=== PATIENT | male | born 1935 | race Caucasian/White ===

== ENCOUNTER 2016-11-10 20:39 | Emergency (ER) | payer OTHER ==
[~2016-11-10] VITALS: Ht 152.4 cm; Wt 62.5 kg
[~2016-11-10 20:39] MED LIST: LEVO50TA PO; MECL1TAB40 PO; POTA-327 PO; SIMV20TA2 PO
[2016-11-10 20:42] VITALS: TEMP 36.7; Ht 152.4 cm; Wt 62.5 kg
--- NOTE | 2016-11-10 22:28 | DIAGNOSTIC IMAGING REPORT ---
PA CHEST WITH LEFT-SIDED RIB SERIES CLINICAL HISTORY: Fall with left-sided chest wall pain. FINDINGS: A PA chest radiograph with 4 additional views from a left-sided rib series is compared to study dated 09/19/2014. The heart is mildly enlarged and there is atherosclerotic calcification of the thoracic aorta. The pulmonary vasculature is noncongested. Chronic interstitial thickening is unchanged from previous. The lungs and pleural spaces are clear. No pneumothorax is seen. The skeletal structures are osteopenic. There are nondistracted left anterior eighth and ninth rib fractures. No additional left-sided rib fracture is identified. The remainder the bony thorax is grossly intact. Degenerative change and scoliosis are noted in the thoracolumbar spine. Atherosclerotic calcification is observed in the carotid bulbs. IMPRESSION: 1. Mild cardiac enlargement with no acute cardiopulmonary abnormality. 2. Nondistracted left anterior eighth and ninth rib fractures are noted. Electronically signed by: Antelmo Herron M.D. 11/10/2016 10:26 PM Dictated Date/Time: 11/10/2016 10:24 PM
[2016-11-10 22:49] VITALS: BP 161/77; PULSE 81; O2SAT 96
--- NOTE | 2016-11-10 22:57 | EMERGENCY ROOM VISIT NOTE ---
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 I was involved in the patient's care and did evaluate the patient myself. I was involved in the care throughout the ER stay. The patient fell, he has 2 broken ribs by film. He is not on any anticoagulants, he is not short of breath or hypoxic. He does not appear to have suffered any other injuries. He is safe for discharge home.
--- NOTE | 2016-11-13 17:28 | EMERGENCY ROOM VISIT NOTE ---
ED Visit Note First contact with patient: 21:58 Chief Complaint: Fall. History of Present Illness: Mr. Velez is an 80-year-old white male who ambulates into the ED complaining of left anterior rib pain. Patient reports approximately 4 hours ago he was walking up his porch steps. He reports he lost his footing and fell striking his left side of his chest on a step. He reports since that time she's had pain over the left anterior chest wall. He reports it has waxed and waned in level of intensity. Currently he describes his pain as an achy sensation. He rates his discomfort 5/10. The pain is nonradiating. The pain worsens with palpation and deep inspiration. He does report he took Aleve shortly after the fall which took all of his pain away and then it returned. He denies any associated symptoms including lightheadedness dizziness before the fall, striking his hand at the time of the fall, loss of consciousness at the time of the fall and since the fall he has had no signs of head injury, neck pain, shortness of breath/wheezing, abdominal pain, nausea/vomiting. Review of Systems: As noted above in history of present illness. 8 body systems were reviewed and found to be negative as noted above. Past Medical History: Hypertension, bilateral unspecified knee surgeries. Current Medications: Lisinopril, hydrochlorothiazide, potassium, levothyroxine, simvastatin and Aleve. Allergies to Medications: Patient denies. Social History: Patient is currently retired; he feels safe in his home environment; he denies tobacco and alcohol use. Physical Examination: Vital Signs: Date Time Temp Pulse Resp B/P Pulse Ox O2 Delivery O2 Flow Rate FiO2 11/10/16 22:49 81 18 161/77 96 Room Air 11/10/16 22:20 90 16 158/72 98 Room Air 11/10/16 20:42 36.7 95 20 187/84 98 Room Air GENERAL: 80-year-old male in mild to moderate distress due to pain, nontoxic- appearing, afebrile and hemodynamically stable. NEUROLOGICAL: Awake, alert and oriented to person, place and time. Answering questions appropriately and following commands. Normal gait. Good hand eye coordination. No focal motor sensory deficits. Cranial nerves II through XII grossly intact. Good short-term and long-term recall. SKIN: Warm, dry and pink. No soft tissue trauma noted. HEENT: Atraumatic and normocephalic. Skull: No bony deformities, depressions or tenderness. No raccoon's eyes or gibbs signs. No drainage from ears and air; hemotympanum. Face: No bony deformity, crepitus or ecchymosis. PERRLA. EOMI without nystagmus. No malocclusion. No intraoral trauma. Airway patent. Speech normal. No lymphadenopathy. Trachea midline. No jugular venous distention. BACK: No tenderness over the bony cervical, thoracic and lumbar spine. Full range of motion of the cervical spine. THORAX: Lungs sounds are clear to auscultation and equal bilaterally with symmetrical chest wall. No wheezing, rales or rhonchi. Moderate tenderness over the left anterior chest wall without bony deformity or crepitus. No swelling or ecchymosis. No increased respiratory effort or rate. HEART: Regular rate and rhythm. No gallops, rubs or murmurs are appreciated. ABDOMEN: Flat, soft and nontender. Positive bowel sounds in all quadrants. No guarding, rigidity or organomegaly. EXTREMITIES: Moves all extremities well on command and with purpose. All distal neurovascular statuses are intact and equal bilaterally. ED Course: Patient is assessed as noted above. PA Chest with Left Rib Series: Read by myself and shows a mildly enlarged heart with atherosclerosis calcification in the thoracic aorta, pulmonary vascular congestion, chronic interstitial thickening from previous, lungs and pleural spaces are clear, no pneumothorax, skeletal structures are osteopenic and there are anterior eighth and ninth nondisplaced rib fractures. Patient was offered pain medications and refused. Patient's case was reviewed with Dr. Purvis; he independently assessed the patient we agreed on diagnostic approach, treatment, disposition and plan. Patient was educated about tonight's findings and instructed on his treatment plan; he verbalizes understanding and agreement with this plan. Clinical Impression: Left anterior rib fractures. Status post fall. Disposition: Patient discharged home in stable condition; prior to departure he was reassessed and rated his discomfort 3/10. Once again he was offered pain medications and refused. Plan: Patient was encouraged to continue his current medications as prescribed by his primary care providers. Patient was encouraged to use Aleve every 12 hours and to take with food and stop for stomach pain or indigestion. Patient was encouraged to do deep breathing exercises every 2-3 hours of the day while awake. Patient was encouraged to call his PCP for recheck. Patient was encouraged return the ED uncontrolled pain, fevers, coughing up blood, shortness of breath or any new/concerning symptoms.
[2016-12-08] MEDS ORDERED: LSN/2025 PO (06:51)
== END 2016-11-10 22:59 | disposition home or self-care (01) ==
LOC: C.EDB 20:40 → C.EDD 22:59
DX: S22.42XA Multiple fractures of ribs, left side, initial encounter for closed fracture (principal); W10.9XXA Fall (on) (from) unspecified stairs and steps, initial encounter

== ENCOUNTER → 2016-11-15 | Outpatient (CLI) | payer OTHER ==
[~2016-11-15] MED LIST changes: +ANT25 PO; -LEVO50TA PO; +LEVO50TA6 PO; +LSN/2025 PO; +LSN20 PO; -MECL1TAB40 PO; +NAPR1TAB9 PO; +NRV5 PO; -POTA-327 PO; +POTA10TA30 PO; +SIMV-151 PO; -SIMV20TA2 PO
[2016-11-15 09:38] LABS: BASO % 0.3 %; BASO ABS # 0.02 K/uL (0-0.2); COMPLETE YES; EOS % 5.1 %; HEMATOCRIT 40.8 % (42-52); IG% 0.3 %; LYMPH % 25.2 %; LYMPH ABS # 1.44 K/uL (1.2-3.4); MEAN CORPUSCULAR HEMOGLOBIN 30.5 pg (25-34); MEAN PLATELET VOLUME 11.4 fL (7.4-10.4); MONO % 7.9 %; NEUT % 61.2 %; PLATELET COUNT 114 K/uL (130-400); RED BLOOD COUNT 4.69 M/uL (4.7-6.1); WHITE BLOOD COUNT 5.72 K/uL (4.8-10.8)
[2016-11-15 11:48] LABS: ALT/SGPT 26 U/L (12-78); AST/SGOT 20 U/L (15-37); BLOOD UREA NITROGEN 17 mg/dl (7-18); BUN/CREATININE RATIO 18.9 (10-20); CALCIUM 9.1 mg/dl (8.5-10.1); CARBON DIOXIDE 28 mmol/L (21-32); CHLORIDE 95 mmol/L (98-107); CREATININE 0.91 mg/dl (0.60-1.40); GLUCOSE 97 mg/dl (70-99); POTASSIUM 4.3 mmol/L (3.5-5.1); SODIUM 133 mmol/L (136-145)
[2016-11-15 12:01] LABS: ALB/GLOB RATIO 1.3 (0.9-2); ALKALINE PHOSPHATASE 71 U/L (45-117); CHOLESTEROL 201 mg/dl (0-200); CHOLESTEROL/HDL RATIO 2.8; HDL CHOLESTEROL 71 mg/dl; LDL CHOLESTEROL CALCULATED 114 mg/dl; TRIGLYCERIDES 79 mg/dl (0-150); VERY LOW DENSITY LIPOPROT CALC 16 mg/dl
== END | disposition home or self-care (01) ==
LOC: C.LAB1850 08:09
PROVIDERS: ATTEND Internal Medicine Pulmonary Disease
DX: I10 Essential (primary) hypertension (principal); E78.5 Hyperlipidemia, unspecified; E03.9 Hypothyroidism, unspecified; D69.6 Thrombocytopenia, unspecified

== ENCOUNTER 2016-12-08 17:43 | Emergency (ER) | payer OTHER ==
[~2016-12-08] VITALS: Ht 152.4 cm; Wt 62.4 kg
[~2016-12-08 17:43] MED LIST changes: -ANT25 PO; -LEVO50TA6 PO; -LSN20 PO; -NAPR1TAB9 PO; -NRV5 PO; -POTA10TA30 PO; -SIMV-151 PO
[2016-12-08 17:48] VITALS: TEMP 36.8; Ht 152.4 cm; Wt 62.4 kg
[2016-12-08] MEDS ORDERED: MECLIZINE HCL 25 MG TAB PO STA (18:00)
[2016-12-08] MEDS ORDERED: SODIUM CHLORIDE 0.9% 500ML 500 ML IV STA (18:00)
--- NOTE | 2016-12-08 18:05 | EMERGENCY ROOM VISIT NOTE ---
History Report prepared by Maynor: Saqib Strickland Under the Supervision of: Dr. Viraj Beach M.D. First contact with patient: 17:53 Chief Complaint: DIZZY Stated Complaint: DIZZINESS Nursing Triage Summary: pt reports 3 weeks ago when walking up porch steps fell onto porch , with fx ribs to L side , seen here and DC , today started with dizziness when awoke seemed to get better during the day then dizziness returned tonight, denies vision changes or difficulty ambulting History of Present Illness The patient is an 81 year old male who presents to the Emergency Room with complaints of persistent dizziness beginning several hours prior to arrival. He states he had a similar episode in the past, in which, the doctor gave him medication that helped. The patient notes the dizziness began when he woke up this morning. He states he fell 3-4 weeks ago and broke his left ribs. The patient notes he has been doing well since. He denies vision changes, difficulty ambulating, loss of control of the bowel or bladder, burning with urination, and diarrhea. 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 A total of 10 systems reviewed and were otherwise negative. Past Medical & Surgical Medical Problems: (1) Hypertension Family History FHx: cancer Hypertension Social History Smoking Status: Never Smoker Drug Use: none Housing Status: lives alone Occupation Status: unemployed Current/Historical Medications Scheduled Hctz/Lisinopril (Lisinopril/Hctz 20/25 Mg), 1 TAB PO QPM Levothyroxine Sodium (Levothyroxine Sodium), 50 MCG PO DAILY Naproxen (Aleve), 220 MG PO PRN UD Potassium Chloride (Potassium Chloride Cr), 10 MEQ PO DAILY Simvastatin (Simvastatin), 20 MG PO QPM Allergies Coded Allergies: No Known Allergies (Unverified , 11/10/16) Physical Exam Vital Signs Date Time Temp Pulse Resp B/P Pulse Ox O2 Delivery O2 Flow Rate FiO2 12/08/16 19:32 74 18 172/87 96 12/08/16 18:50 77 18 169/93 95 Room Air 12/08/16 18:38 81 18 172/114 98 12/08/16 17:48 36.8 89 18 179/92 100 Room Air Physical Exam GENERAL: Patient is well appearing and in no acute distress. HEENT: Mild horizontal nystagmus to the right eye. No acute trauma, normocephalic atraumatic, mucous membranes moist, no nasal congestion, no scleral icterus. NECK: No stridor, no adenopathy, no meningismus, trachea is midline. LUNGS: No dyspnea. Clear to auscultation and equal bilaterally. No wheeze, no rhonchi. HEART: Regular rate and rhythm. No murmurs, rubs, gallops appreciated. ABDOMEN: Soft, nontender, bowel sounds positive, no masses appreciated, no peritonitis. BACK: No midline tenderness, no CVA tenderness EXTREMITIES: Normal motion all extremities, no cyanosis, no edema. NEUROLOGIC: Alert and oriented, no acute motor or sensory deficits, no focal weakness, cranial nerves grossly intact. SKIN: No rash, no jaundice, no diaphoresis. Medical Decision & Procedures ER Provider Diagnostic Interpretation: CT results are stated below per my interpretation and the radiologist's interpretation. HEAD CT NONCONTRAST CT DOSE: 601.98 mGy.cm HISTORY: dizzy TECHNIQUE: Multiaxial CT images of the head were performed without the use of intravenous contrast. Automated exposure control was utilized for this study. Comparison: Brain MRI 04/04/2008. Findings: The paranasal sinuses and mastoid air cells are clear. The calvarium and skull base are intact. There is no mass, hematoma, midline shift, acute infarct. White matter hypodensity is nonspecific but suggestive of microvascular ischemic change. The ventricles and sulci demonstrate mild age-related involutional changes. Impression: No acute intracranial abnormality. Atrophy and microvascular ischemic changes. Electronically signed by: Alexys Freeman M.D. 12/08/2016 6:29 PM Laboratory Results 12/08/16 18:11 12/08/16 18:11 Test 12/08/16 18:11 Red Blood Count 4.39 M/uL (4.7-6.1) Mean Corpuscular Volume 83.8 fL (80-100) Mean Corpuscular Hemoglobin 30.8 pg (25-34) Mean Corpuscular Hemoglobin Concent 36.7 g/dl (32-36) RDW Standard Deviation 37.5 fL (36.4-46.3) RDW Coefficient of Variation 12.3 % (11.5-14.5) Mean Platelet Volume 9.8 fL (7.4-10.4) Anion Gap 9.0 mmol/L (3-11) Est Creatinine Clear Calc Drug Dose 46.8 ml/min Estimated GFR () 87.7 Estimated GFR (Non- 75.7 BUN/Creatinine Ratio 18.4 (10-20) Calcium Level 8.4 mg/dl (8.5-10.1) Troponin I < 0.015 ng/ml (0-0.045) Laboratory results as reviewed by me. Medications Administered Medications (Trade) Dose Ordered Sig/Ruby Route Start Time Stop Time Status Last Admin Dose Admin Meclizine HCl 12.5 mg 12.5 mg NOW STAT PO 12/08/16 18:00 12/08/16 18:03 DC 12/08/16 18:31 12.5 MG Sodium Chloride (Nss 500ml) 500 ml @ 999 mls/hr Q31M STAT IV 12/08/16 18:00 12/08/16 18:30 DC 12/08/16 18:11 999 MLS/HR Meclizine HCl (Antivert 25MG Home Pack) 1 homepack UD ONCE PO 12/08/16 19:30 12/08/16 19:31 DC 12/08/16 19:30 1 HOMEPACK ECG Indication: other (dizziness) Rate (beats per minute): 76 Rhythm: normal sinus Findings: no acute ischemic change, no ectopy ED Course 175: The patient was evaluated in room B4B. A complete history and physical exam was performed. 1800: Ordered Sodium Chloride 500 ml @ 999 mls/hr IV, Antivert Tab 12.5 mg PO. 1840: Reevaluated the patient at this time, and he is feeling a little better. The patient's blood pressure is mildly elevated. 1841: Ordered Labetalol HCl 10 mg IV. 1929: Ordered Meclizine HCl 1 homepack PO. 1931: Reevaluated the patient at this time, and he feel fine and would like to go home. I informed him not to drive or bowl while taking his Meclizine. Discussed results and discharge instructions: He verbalized understanding and agreement. The patient is ready for discharge. Medical Decision Differential diagnoses include Benign positional vertigo, Dehydration, Hypovolemia, Anemia, Tumor, Infection, Hypoglycemia, Electrolyte abnormalities, Cardiac sources, Intracerebral event, Toxicologic, Neurologic, as well as others were entertained. 81 yr old male comes in for evaluation of dizziness. Clearly described as spinning which he has had before. Exam with mild horizontal nystagmus. Resolved with half dose meclizine. He is feeling well and in no distress. CT head negative. No neuro deficits. No evidence infection. Not Cardiac with normal EKG and trop. Discussed symptoms requiring return. Sister living at his home and both feel comfortable going home. Impression Primary Impression: Vertigo Additional Impression: Hypertension Scribe Attestation The scribe's documentation has been prepared under my direction and personally reviewed by me in its entirety. I confirm that the note above accurately reflects all work, treatment, procedures, and medical decision making performed by me. Departure Information Dispostion Home / Self-Care Referrals David Nevarez M.D. (PCP) Forms HOME CARE DOCUMENTATION FORM, IMPORTANT VISIT INFORMATION Patient Instructions ED Vertigo Unspecified, My [facility] Additional Instructions Please follow up with your primary care provider to have your blood pressure rechecked. Problem Qualifiers Additional Impression: Hypertension Hypertension type: essential hypertension Qualified Codes: I10 - Essential ( primary) hypertension
[2016-12-08 18:22] LABS: HEMATOCRIT 36.8 % (42-52); MEAN CELL VOLUME 83.8 fL (80-100); MEAN CORPUSCULAR HEMOGLOBIN 30.8 pg (25-34); MEAN CORPUSCULAR HGB CONC 36.7 g/dl (32-36); MEAN PLATELET VOLUME 9.8 fL (7.4-10.4); PLATELET COUNT 117 K/uL (130-400); RED BLOOD COUNT 4.39 M/uL (4.7-6.1); WHITE BLOOD COUNT 5.97 K/uL (4.8-10.8)
--- NOTE | 2016-12-08 18:30 | DIAGNOSTIC IMAGING REPORT ---
HEAD CT NONCONTRAST CT DOSE: 601.98 mGy.cm HISTORY: dizzy TECHNIQUE: Multiaxial CT images of the head were performed without the use of intravenous contrast. Automated exposure control was utilized for this study. Comparison: Brain MRI 04/04/2008. Findings: The paranasal sinuses and mastoid air cells are clear. The calvarium and skull base are intact. There is no mass, hematoma, midline shift, acute infarct. White matter hypodensity is nonspecific but suggestive of microvascular ischemic change. The ventricles and sulci demonstrate mild age-related involutional changes. Impression: No acute intracranial abnormality. Atrophy and microvascular ischemic changes. Electronically signed by: Alexys Freeman M.D. 12/08/2016 6:29 PM Dictated Date/Time: 12/08/2016 6:26 PM
[2016-12-08 18:39] LABS: BLOOD UREA NITROGEN 17 mg/dl (7-18); BUN/CREATININE RATIO 18.4 (10-20); CALCIUM 8.4 mg/dl (8.5-10.1); CARBON DIOXIDE 25 mmol/L (21-32); CHLORIDE 95 mmol/L (98-107); CREATININE 0.93 mg/dl (0.60-1.40); GLUCOSE 127 mg/dl (70-99); POTASSIUM 4.1 mmol/L (3.5-5.1); SODIUM 129 mmol/L (136-145)
[2016-12-08] MEDS ORDERED: LABETALOL HCL IV 5 MG/ML 20ML IV STA (18:42)
[2016-12-08] MEDS ORDERED: MECLIZINE HCL 25MG HOME PACK PO ONE (19:30)
[2016-12-08 19:32] VITALS: BP 172/87; PULSE 74; O2SAT 96
[2016-12-08] MEDS ORDERED: POTA10TA30 PO (21:37)
[2016-12-08] MEDS ORDERED: LEVO50TA6 PO (21:37)
[2016-12-08] MEDS ORDERED: SIMV-151 PO (21:37)
[2016-12-08] MEDS ORDERED: NAPR1TAB9 PO (21:41)
== END 2016-12-08 19:33 | disposition home or self-care (01) ==
LOC: C.EDB 17:44
DX: R42 Dizziness and giddiness (principal); I10 Essential (primary) hypertension

== ENCOUNTER 2016-12-12 09:44 | Inpatient (IN) | payer OTHER ==
[~2016-12-12] VITALS: Ht 152.4 cm; Wt 60.6 kg
[~2016-12-12 09:44] MED LIST changes: +LEVO50TA6 PO; +NAPR1TAB9 PO; +POTA10TA30 PO; +SIMV-151 PO
[2016-12-12] MEDS ORDERED: SODIUM CHLORIDE 0.9% 1000ML 1,000 ML IV STA (10:18)
--- NOTE | 2016-12-12 10:20 | EMERGENCY ROOM VISIT NOTE ---
History Report prepared by Maynor: Marsha Mai Under the Supervision of: Dr. Viraj Beach M.D. First contact with patient: 10:13 Chief Complaint: VERTIGO Stated Complaint: VERTIGO Nursing Triage Summary: pt to the ED with continued vertigo after being seen on tuesday and felt fine after he took the homepack and then after he ran out the dizziness returned. no numbness no tingling no syncope no n/v History of Present Illness The patient is an 81 year old male who presents to the Emergency Room with complaints of worsening vertigo for the past 1 week. He was seen here in the ED 5 days ago for the same symptoms and is accompanied by 2 family members. He was prescribed Meclizine here in the ED which provided good relief, but he notes he has run out of the prescription and his vertigo is now worsening. He denies any headaches or changes in visions. He states he feels well expect for the vertigo. The patient denies any nausea, vomiting, numbness or tingling in his extremities or recent episodes of syncope. 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 A total of 10 systems reviewed and were otherwise negative. Past Medical & Surgical Medical Problems: (1) Hypertension Family History FHx: cancer Hypertension Social History Smoking Status: Former Smoker Drug Use: none Marital Status: Housing Status: lives alone Occupation Status: unemployed Current/Historical Medications Scheduled Hctz/Lisinopril (Lisinopril/Hctz 20/25 Mg), 1 TAB PO QPM Levothyroxine Sodium (Levothyroxine Sodium), 50 MCG PO DAILY Potassium Chloride (Potassium Chloride Cr), 10 MEQ PO DAILY Simvastatin (Simvastatin), 20 MG PO QPM Allergies Coded Allergies: No Known Allergies (Unverified , 11/10/16) Physical Exam Vital Signs Date Time Temp Pulse Resp B/P Pulse Ox O2 Delivery O2 Flow Rate FiO2 12/12/16 11:48 71 18 170/98 95 12/12/16 10:16 80 12/12/16 09:55 36.8 82 18 170/92 97 Room Air Physical Exam GENERAL: Patient is well appearing and in no acute distress. HEENT: No acute trauma, normocephalic atraumatic, mucous membranes moist, no nasal congestion, no scleral icterus. NECK: No stridor, no adenopathy, no meningismus, trachea is midline. LUNGS: No dyspnea. Clear to auscultation and equal bilaterally. No wheeze, no rhonchi. HEART: Regular rate and rhythm. Systolic murmur. No rubs, gallops appreciated. ABDOMEN: Soft, nontender, bowel sounds positive, no masses appreciated, no peritonitis. BACK: No midline tenderness, no CVA tenderness EXTREMITIES: Normal motion all extremities, no cyanosis, no edema. NEUROLOGIC: Alert and oriented, no acute motor or sensory deficits, no focal weakness, cranial nerves grossly intact. SKIN: No rash, no jaundice, no diaphoresis. Medical Decision & Procedures ER Provider Diagnostic Interpretation: This MRI was reviewed and interpreted by the radiologist and reviewed by myself. Brain MRI WITH AND WITHOUT CONTRAST IMPRESSION: No acute intracranial abnormality. Scattered foci of T2 hyperintensity seen within the periventricular and subcortical white matter are nonspecific but favor microvascular ischemic change. Electronically signed by: Alexys Freeman M.D. 12/12/2016 11:48 AM Laboratory Results 12/12/16 10:30 12/12/16 10:30 Test 12/12/16 10:07 12/12/16 10:30 Urine Color YELLOW Urine Appearance CLEAR (CLEAR) Urine pH 6.5 (4.5-7.5) Urine Specific Proctor 1.009 (1.000-1.030) Urine Protein NEG (NEG) Urine Glucose (UA) NEG (NEG) Urine Ketones NEG (NEG) Urine Occult Blood TRACE (NEG) Urine Nitrite NEG (NEG) Urine Bilirubin NEG (NEG) Urine Urobilinogen NEG (NEG) Urine Leukocyte Esterase NEG (NEG) Urine WBC (Auto) 0 /hpf (0-5) Urine RBC (Auto) 0-4 /hpf (0-4) Urine Hyaline Casts (Auto) 0 /lpf (0-5) Urine Epithelial Cells (Auto) 0-5 /lpf (0-5) Urine Bacteria (Auto) NEG (NEG) Urine Osmolality 395 mOms/kg (500-800) Red Blood Count 4.79 M/uL (4.7-6.1) Mean Corpuscular Volume 83.5 fL (80-100) Mean Corpuscular Hemoglobin 30.1 pg (25-34) Mean Corpuscular Hemoglobin Concent 36.0 g/dl (32-36) RDW Standard Deviation 37.3 fL (36.4-46.3) RDW Coefficient of Variation 12.2 % (11.5-14.5) Mean Platelet Volume 9.5 fL (7.4-10.4) Anion Gap 5.0 mmol/L (3-11) Est Creatinine Clear Calc Drug Dose 53.5 ml/min Estimated GFR () 95.3 Estimated GFR (Non- 82.2 BUN/Creatinine Ratio 18.4 (10-20) Osmolality 270 mOsm/kg (280-300) Calcium Level 8.8 mg/dl (8.5-10.1) Troponin I < 0.015 ng/ml (0-0.045) Laboratory results as reviewed by me. Medications Administered Medications (Trade) Dose Ordered Sig/Ruby Route Start Time Stop Time Status Last Admin Dose Admin Sodium Chloride (Nss 1000ml) 1,000 ml @ 75 mls/hr [id number] STAT IV 12/12/16 10:18 12/12/16 14:09 DC 12/12/16 10:32 75 MLS/HR Meclizine HCl (Antivert Tab) 25 mg NOW STAT PO 12/12/16 10:30 12/12/16 10:31 DC 12/12/16 10:37 25 MG ED Course 1014: The patient was evaluated in room C9. A complete history and physical exam was performed. 1018: NSS 1000 ml @ 75 mls/hr IV. 1030: Meclizine 25 mg PO. 1201: I discussed the patient's case with Dr. Perera, [facility] Hospitalist. The patient will be further evaluated. Medical Decision Differential diagnoses include Benign positional vertigo, Dehydration, Hypovolemia, Anemia, Tumor, Infection, Hypoglycemia, Electrolyte abnormalities, Cardiac sources, Intracerebral event, Toxicologic, Neurologic, as well as others were entertained. 81 yr old male arrives with complaint of persistent vertiginous symptoms with generalized weakness. He has no neuro deficits, looks well and in no distress after meclizine. MRI brain done given persistent vertigo which was fortunately negative. Of note he has evidence of worsening hypoNa. With weakness suspect that this acute hypoNa may be cause of this. Labs consistent with normal Na just a few weeks ago and he was at 129 a few days ago at which time he received NSS bolus which should have improved hypoNa. He is comfortable with staying for further work-up which seems reasonable. Consults Time Called: [id number] Consulting Physician: Dr. Perera, [facility] Hospitalist Returned Call: [id number] I discussed the patient's case with Dr. Perera [facility] Hospitalist. The patient will be further evaluated. Impression Primary Impression: Acute hyponatremia Additional Impressions: Weakness Vertigo Scribe Attestation The scribe's documentation has been prepared under my direction and personally reviewed by me in its entirety. I confirm that the note above accurately reflects all work, treatment, procedures, and medical decision making performed by me. Departure Information Dispostion Being Evaluated By Hospitalist Referrals David Nevarez M.D. (PCP) Patient Instructions My [facility] Problem Qualifiers
[2016-12-12] MEDS ORDERED: MECLIZINE HCL 25 MG TAB PO STA (10:30)
[2016-12-12 10:40] LABS: MEAN CELL VOLUME 83.5 fL (80-100); MEAN CORPUSCULAR HEMOGLOBIN 30.1 pg (25-34); MEAN PLATELET VOLUME 9.5 fL (7.4-10.4); PLATELET COUNT 120 K/uL (130-400); RED BLOOD COUNT 4.79 M/uL (4.7-6.1); WHITE BLOOD COUNT 6.56 K/uL (4.8-10.8)
[2016-12-12 10:57] LABS: BLOOD UREA NITROGEN 15 mg/dl (7-18); BUN/CREATININE RATIO 18.4 (10-20); CALCIUM 8.8 mg/dl (8.5-10.1); CARBON DIOXIDE 29 mmol/L (21-32); CHLORIDE 92 mmol/L (98-107); CREATININE 0.81 mg/dl (0.60-1.40); GLUCOSE 88 mg/dl (70-99); SODIUM 126 mmol/L (136-145)
--- NOTE | 2016-12-12 11:50 | DIAGNOSTIC IMAGING REPORT ---
Brain MRI WITH AND WITHOUT CONTRAST HISTORY: continued vertigo TECHNIQUE: Multiplanar multisequence MRI of the brain was performed both before and after the intravenous administration of contrast. COMPARISON STUDY: Head CT 12/08/2016. Brain MRI 04/04/2008. FINDINGS: There is no mass, hematoma, midline shift, or acute infarct. The paranasal sinuses are clear. The mastoid air cells are clear. The ventricles and sulci demonstrate mild age-related involutional changes. Scattered foci of T2 hyperintensity seen within the periventricular and subcortical white matter are nonspecific but suggestive of mild microvascular ischemic changes. The major vascular flow voids at the skull base are well-maintained. No abnormal enhancement. IMPRESSION: No acute intracranial abnormality. Scattered foci of T2 hyperintensity seen within the periventricular and subcortical white matter are nonspecific but favor microvascular ischemic change. Electronically signed by: Alexys Freeman M.D. 12/12/2016 11:48 AM Dictated Date/Time: 12/12/2016 11:42 AM
[2016-12-12 12:33] LABS: MANUAL MICROSCOPIC REQUIRED? NO; REVIEW REQ? NO; URINE APPEARANCE CLEAR (CLEAR); URINE BILIRUBIN NEG (NEG); URINE COLOR YELLOW; URINE EPITHELIAL CELL AUTO 0-5 /lpf (0-5); URINE NITRITE NEG (NEG); URINE PH 6.5 (4.5-7.5); URINE SPECIFIC GRAVITY 1.009 (1.000-1.030); UROBILINOGEN NEG (NEG); ZZUR CULT IF INDIC CLEAN CATCH NO
[2016-12-12] MEDS ORDERED: HydrALAZINE HCL 20 MG/ML VIAL IV. PRN (12:45)
[2016-12-12] MEDS ORDERED: ONDANSETRON 4 MG TAB PO PRN (13:30)
[2016-12-12] MEDS ORDERED: ACETAMINOPHEN 325 MG TAB PO PRN (13:30)
[2016-12-12 13:43] VITALS: BP 179/90; PULSE 84; TEMP 36.5; O2SAT 96; Ht 152.4 cm; Wt 60.6 kg
--- NOTE | 2016-12-12 13:53 | History and Physical ---
History & Physical Date of Service Dec 12, 2016. History & Physical H& P dictated. KE.
[2016-12-12] MEDS ORDERED: AMLODIPINE BESYLATE 5 MG TAB PO ONE (14:30)
--- NOTE | 2016-12-12 14:36 | HISTORY & PHYSICAL EXAMINATION ---
DATE OF ADMISSION: 12/12/2016 ADMISSION HISTORY AND PHYSICAL CHIEF COMPLAINT: Dizziness. HISTORY OF PRESENT ILLNESS: This 81-year-old male patient came to the Emergency Department today because upon awakening this morning, he felt very dizzy, he did not note that the room was spinning, there did not seem to be any change in his vision back, but he felt that he could barely get out of bed without falling over. He described no chest pain, no shortness of breath, no ringing in his ears, no loss of hearing. He had no other neurologic symptoms including no unilateral weakness, no slurred speech, no difficulty in speaking, no facial droop, no problems with swallowing. The patient actually was in the Emergency Department here approximately 5 days prior, where he had similar symptoms that had been on and off for a few days. He was given a prescription for meclizine and felt that while taking as this, his symptoms improved. He did not take any meclizine yesterday and in fact told me that he had no symptoms whatsoever and they were present upon waking this morning. PAST MEDICAL HISTORY: Significant for hypertension, hypothyroidism, hyperlipidemia, and diverticulosis. PAST SURGICAL HISTORY: Include bilateral cataracts. SOCIAL HISTORY: The patient is retired. 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 He is . No history of scuba or deep sea diving. He does not drink alcohol. He smoked when he was young, but has not smoked in decades. FAMILY HISTORY: Consistent with hypertension and a nonspecified cancer. REVIEW OF SYSTEMS: A complete 10-system review was performed. Positives are placed in the HPI, otherwise negative. HOME MEDICATIONS: Include combination of lisinopril and hydrochlorothiazide 20/25 mg 1 p.o. daily, Synthroid 50 mcg daily, potassium chloride 10 mEq daily, and Simvastatin 20 mg at bedtime. PHYSICAL EXAMINATION: VITAL SIGNS: Temperature 36.8, pulse 82, respiratory rate of 18, blood pressure 170/92, pulse ox 97% on room air. GENERAL: The patient is awake, alert and oriented x3, not in acute distress. HEENT: TMs are seen minimally and the patient does have cerumen in both canals but is not completely blocking either side. It does not appear to be pushing against the tympanic membrane. His throat is clear. Extraocular muscles intact. Pupils equal, round and react to light and accommodation. His mucous membranes were moist. Tongue is midline and uvula is midline. NECK: No JVD or lymphadenopathy. LUNGS: Clear to auscultation bilaterally. No rales, rhonchi or wheezes. HEART: Regular. Normal S1, S2 with a 1/6 systolic murmur. ABDOMEN: Soft, nontender, nondistended, positive bowel sounds. EXTREMITIES: No clubbing, cyanosis or edema. NEUROLOGIC: Cranial nerves II-XII are grossly intact and nonfocal. There is no nystagmus. I was not able to reproduce vertigo with rapid eye movement. SKIN: Warm and dry without rash. PSYCHIATRIC: The patient is pleasant and cooperative. No signs any psychiatric abnormality. LABORATORY DATA: Sodium is 126, potassium 4.0, chloride is 92, carbon dioxide 29, BUN 15, creatinine 0.81, glucose of 88. Troponin of less than 0.015. White count 6.56, hemoglobin 14.4, hematocrit 40.0, and platelet count is 120,000. IMAGING STUDIES: The patient had a CAT scan of the head performed on 12/08/2016 showing no acute intracranial abnormality, atrophy and microvascular ischemic changes were noted and today he had an MRI of the brain showing no acute intracranial abnormality. Scattered foci of T2 hyperintensity seen within the periventricular and subcortical white matter, nonspecific but favor microvascular ischemic change. ASSESSMENT: 1. The patient is assessed as an acute onset of vertigo with intermittent vertiginous episodes over the past 10 days. 2. Hyponatremia. 3. Hypochloremia. 4. Thrombocytopenia. 5. Hypertension, currently not controlled. 6. Hypothyroidism. 7. Hyperlipidemia. 8. Diverticulosis. PLAN: The patient is admitted to the telemetry unit. I am holding his hydrochlorothiazide as that at least is partially if not completely responsible for the low sodium and chloride. He did receive a liter of normal saline in the Emergency Department and the patient appears euvolemic. Therefore, I do not feel the need to continue IV fluids. I did order him sodium chloride tablets 1 gram with each meal and will check a sodium level in the morning. Even though he seemed to be afforded relief from meclizine, I am holding at this time as he is in the hospital such that if his sodium is corrected, I would be interested not to dampen his symptoms to help determine if there is relation. Although the patient has a low sodium, I do not suspect that that causing his vertiginous symptoms. In fact, yesterday the patient did not take any meclizine and felt completely fine throughout the day and I would not suspect that sodium would drop significantly in just the hours of sleep, so I think that his symptoms are more related to a benign positional vertigo. I did order amlodipine to better control his blood pressure, especially if we find that the hydrochlorothiazide is not a good choice for him. I did continue his lisinopril and simvastatin, also ordered hydralazine as needed for additional blood pressure coverage. For completeness, I ordered carotid Dopplers and an echocardiogram. I did hear a murmur, the patient was not aware of that and has not had an echo in the past. I did order physical and occupational therapy to work with vestibular rehabilitation. I will follow his platelet counts. We do not have a good reason why his platelets would be a bit low at this point and I am quoting heparin and Lovenox. Even though it is not less than 100,000, I think his risk is moderate to low and he is given SHANTELLE and SCDs for DVT prophylaxis. We will have nursing do orthostatic vital signs in each day he is in the hospital. If we get his sodium back to normal and he is still with intermittent vertigo, he may benefit from seeing ENT as an outpatient for further treatment with Scotty-Hallpike maneuvers. MARNI
[2016-12-12 15:16] VITALS: BP 135/79; PULSE 98
[2016-12-12 15:56] VITALS: BP 159/86; PULSE 99; TEMP 36.4; O2SAT 96
--- NOTE | 2016-12-12 16:07 | DIAGNOSTIC IMAGING REPORT ---
CAROTID ARTERY ULTRASOUND CLINICAL HISTORY: Vertigo COMPARISON STUDY: None. TECHNIQUE: Real-time, grayscale, and color Doppler sonography of the carotid and vertebral arteries was performed. Images were viewed in the transverse and longitudinal planes. FINDINGS: There is moderate atherosclerotic plaque. Velocity measurements are listed below. COMMON CAROTID PEAK SYSTOLIC VELOCITY (CM/S): RIGHT 63 LEFT 85 ICA PEAK SYSTOLIC VELOCITY (CM/S): RIGHT 88 LEFT 77 The systolic ratios between the internal to common carotid arteries were normal. Antegrade flow is seen in the vertebral arteries. The external carotid arteries are patent. Blood pressure in the right arm measured 161/87. Blood pressure in the left arm measured 160/93. IMPRESSION: No evidence of a hemodynamically significant stenosis. Electronically signed by: Victor Manuel Woodward M.D. 12/12/2016 4:06 PM Dictated Date/Time: 12/12/2016 4:04 PM
[2016-12-12] MEDS: SODIUM CHLORIDE 1 GM TAB PO SCH (17:14)
[2016-12-12 20:22] VITALS: BP 131/81; PULSE 75; TEMP 36.3; O2SAT 99
[2016-12-12] MEDS: SIMVASTATIN 20 MG TAB PO SCH (20:53)
[2016-12-12] MEDS: FAMOTIDINE 20 MG TAB PO SCH (20:53)
[2016-12-12 23:14] VITALS: BP_SYST 125; BP_SYST 129; BP_SYST 140; BP_DIAS 77; BP_DIAS 79; BP_DIAS 82; PULSE 76; PULSE 79; TEMP 36.5; O2SAT 98
[2016-12-13] VITALS (7 sets, daily range): BP systolic 117–148; BP diastolic 71–90; PULSE 73–101; TEMP 36.2–36.8; O2SAT 96–98
[2016-12-13] MEDS: LEVOTHYROXINE 50 MCG TAB PO SCH (06:07)
[2016-12-13] MEDS: SODIUM CHLORIDE 1 GM TAB PO SCH ×2 (07:42→14:05)
[2016-12-13 08:11] LABS: BASO % 0.3 %; BASO ABS # 0.02 K/uL (0-0.2); COMPLETE YES; EOS % 4.6 %; IG% 0.3 %; LYMPH % 20.8 %; LYMPH ABS # 1.23 K/uL (1.2-3.4); MEAN CELL VOLUME 84.3 fL (80-100); MEAN CORPUSCULAR HEMOGLOBIN 30.6 pg (25-34); MEAN CORPUSCULAR HGB CONC 36.3 g/dl (32-36); MEAN PLATELET VOLUME 10.5 fL (7.4-10.4); MONO % 9.1 %; NEUT % 64.9 %; PLATELET COUNT 117 K/uL (130-400); RED BLOOD COUNT 4.51 M/uL (4.7-6.1); WHITE BLOOD COUNT 5.92 K/uL (4.8-10.8)
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
[2016-12-13 08:28] LABS: BUN/CREATININE RATIO 18.1 (10-20); CALCIUM 8.7 mg/dl (8.5-10.1); CREATININE 0.95 mg/dl (0.60-1.40); POTASSIUM 3.8 mmol/L (3.5-5.1)
[2016-12-13] MEDS: FAMOTIDINE 20 MG TAB PO SCH ×2 (08:38→20:45)
[2016-12-13] MEDS: LISINOPRIL 20 MG TAB PO SCH (08:39)
[2016-12-13] MEDS: AMLODIPINE BESYLATE 5 MG TAB PO SCH (08:39)
[2016-12-13] MEDS ORDERED: PERFLUTREN LIPID MICROSPHERE (DEFINITY) IV ONE (11:12)
--- NOTE | 2016-12-13 12:57 | ECHOCARDIOGRAM REPORT ---
*NOTICE TO RECEIVING CONSTITUTION PARTY AGENCY This information is strictly Confidential and protected under [place] law. [place] law prohibits you from making any further disclosure of this information unless further disclosure is expressly permitted by the written consent of the person to whom it pertains or is authorized by law. A general authorization for the release of medical or other information is not sufficient for this purpose. Hospital accepts no responsibility if the information is made available to any other person, INCLUDING THE PATIENT. Interpretation Summary * Name: EMEKA GARCIA Study Date: 12/13/2016 10:40 AM BP: 179/90 mmHg * Patient Location: [facility] HR: 84 * : 1935 (M/d/yyyy) Gender: Male Height: 60 in * Age: 81 yrs Ethnicity: CA Weight: 136 lb * Ordering Physician: Chandu Valdez * Referring Physician: BERNICE * Performed By: Phuong Byrne RDCS * * Reason For Study: DIZZINESS, HTN * BSA: 1.6 m2 * History: DIZZINESS, HTN * -- Conclusions -- * The left ventricle is normal in size. * Ejection Fraction = 60-65%. * Left ventricular systolic function is normal. * The left ventricular wall motion is normal. * There is severe concentric left ventricular hypertrophy. * Grade I diastolic dysfunction, (abnormal relaxation pattern). * Moderate valvular aortic stenosis. * There is no significant aortic regurgitation. * There is mild tricuspid regurgitation. * Right ventricular systolic pressure is normal. Procedure Details * A contrast injection of Definity was performed to improve assessment of LV function. * Contrast was injected into an intravenous site in the right arm. * One vial of Definity ultrasound contrast was diluted in normal saline to a total volume of 10 ml. A total of '2' ml of solution was administered during imaging. * Lot # [id number] of Definity utilized for procedure. * Expiration date NOV 03. * The attending nurse who injected the contrast agent was TAY RIVAS RN. Left Ventricle * The left ventricle is normal in size. * There is severe concentric left ventricular hypertrophy. * Ejection Fraction = 60-65%. * Left ventricular systolic function is normal. * The left ventricular wall motion is normal. Right Ventricle * The right ventricle is normal in size and function. Atria * The left atrial size is normal. * Right atrial size is normal. * The interatrial septum is intact with no evidence for an atrial septal defect. Mitral Valve * The mitral valve is normal in structure and function. * Significant mitral regurgitation is absent. Tricuspid Valve * The tricuspid valve is normal in structure and function. * There is mild tricuspid regurgitation. * Right ventricular systolic pressure is normal. Aortic Valve * Moderate valvular aortic stenosis. * Aortic valve area was calculated at 1.2 cm\S\2 using the continuity equation. * There is no significant aortic regurgitation. Pulmonic Valve * The pulmonary valve is inadequately visualized, but the Doppler data is adequate for interpretation. * There is no significant pulmonary regurgitation. Great Vessels * The aortic root is normal size. * No obvious dissection could be visualized. * The pulmonary artery is not well visualized, but is probably normal size. Pericardium/Pleural * There is no pericardial effusion. Great Vessels * Normal inferior vena cava diameter and respiratory variation suggests normal central venous pressure. Left Ventricular Diastolic Function * Grade I diastolic dysfunction, (abnormal relaxation pattern). MMode 2D Measurements and Calculations IVSd 0.82 cm IVSs 1.4 cm LVIDd 3.8 cm LVIDs 2.5 cm LVPWd 1.2 cm LVPWs 1.7 cm IVS/LVPW 0.69 FS 33.4 % EDV(Teich) 60.5 ml ESV(Teich) 22.5 ml EF(Teich) 62.8 % EDV(cubed) 53.2 ml ESV(cubed) 15.8 ml EF(cubed) 70.4 % % IVS thick 71.0 % % LVPW thick 38.4 % LV mass(C)d 116.5 grams LV mass(C)dI 73.6 grams/m\S\2 LV mass(C)s 130.6 grams LV mass(C)sI 82.4 grams/m\S\2 SV(Teich) 38.0 ml SI(Teich) 24.0 ml/m\S\2 SV(cubed) 37.5 ml SI(cubed) 23.6 ml/m\S\2 LVOT diam 2.0 cm LVOT area 3.2 cm\S\2 LVAd ap4 27.1 cm\S\2 LVLd ap4 7.3 cm EDV(MOD-sp4) 80.7 ml EDV(sp4-el) 85.3 ml LVAs ap4 13.9 cm\S\2 LVLs ap4 5.4 cm ESV(MOD-sp4) 30.0 ml ESV(sp4-el) 30.4 ml EF(MOD-sp4) 62.8 % EF(sp4-el) 64.3 % LVAd ap2 15.1 cm\S\2 LVLd ap2 6.4 cm EDV(MOD-sp2) 29.4 ml EDV(sp2-el) 30.0 ml LVAs ap2 8.4 cm\S\2 LVLs ap2 5.0 cm ESV(MOD-sp2) 11.6 ml ESV(sp2-el) 12.2 ml EF(MOD-sp2) 60.4 % EF(sp2-el) 59.3 % LVLd %diff -130 % EDV(MOD-bp) 52.2 ml LVLs %diff -8.57 % ESV(MOD-bp) 19.1 ml EF(MOD-bp) 63.4 % SV(MOD-sp4) 50.7 ml SI(MOD-sp4) 32.0 ml/m\S\2 SV(MOD-sp2) 17.8 ml SI(MOD-sp2) 11.2 ml/m\S\2 SV(MOD-bp) 33.1 ml SI(MOD-bp) 20.9 ml/m\S\2 SV(sp4-el) 54.9 ml SI(sp4-el) 34.7 ml/m\S\2 SV(sp2-el) 17.8 ml SI(sp2-el) 11.2 ml/m\S\2 Doppler Measurements and Calculations MV E max alicia 64.5 cm/sec MV A max alicia 98.0 cm/sec MV E/A 0.66 MV dec time 0.30 sec Ao V2 max 234.8 cm/sec Ao max PG 22.1 mmHg Ao max PG (full) 19.0 mmHg Ao V2 mean 169.7 cm/sec Ao mean PG 12.8 mmHg Ao mean PG (full) 11.2 mmHg Ao V2 VTI 43.6 cm LUZ(I,A) 1.4 cm\S\2 LUZ(I,D) 1.4 cm\S\2 LUZ(V,A) 1.2 cm\S\2 LUZ(V,D) 1.2 cm\S\2 LV V1 max PG 3.1 mmHg LV V1 mean PG 1.7 mmHg LV V1 max 87.8 cm/sec LV V1 mean 61.8 cm/sec LV V1 VTI 19.4 cm SV(LVOT) 61.8 ml SI(LVOT) 39.0 ml/m\S\2 TR max alicia 243.9 cm/sec
[2016-12-13] MEDS: MECLIZINE HCL 25 MG TAB PO SCH ×2 (13:03→20:45)
[2016-12-13] MEDS ORDERED: SODIUM CHLORIDE 0.9% 1000ML 1,000 ML IV SCH (18:30)
[2016-12-13] MEDS: SIMVASTATIN 20 MG TAB PO SCH (20:45)
[2016-12-14 03:50] VITALS: BP 158/89; PULSE 83; TEMP 36.4; O2SAT 97
[2016-12-14 05:30] VITALS: BP 144/79; PULSE 73
[2016-12-14] MEDS: MECLIZINE HCL 25 MG TAB PO SCH (05:47)
[2016-12-14] MEDS: LEVOTHYROXINE 50 MCG TAB PO SCH (05:47)
[2016-12-14 06:08] LABS: BUN/CREATININE RATIO 18.2 (10-20); CALCIUM 8.4 mg/dl (8.5-10.1); CREATININE 0.89 mg/dl (0.60-1.40); POTASSIUM 4.5 mmol/L (3.5-5.1)
[2016-12-14 06:39] VITALS: BP 139/83; PULSE 72; TEMP 36.4; O2SAT 97
[2016-12-14 08:40] VITALS: BP 138/77; PULSE 85
[2016-12-14] MEDS: AMLODIPINE BESYLATE 5 MG TAB PO SCH (08:40)
[2016-12-14] MEDS: FAMOTIDINE 20 MG TAB PO SCH (08:40)
--- NOTE | 2016-12-14 08:40 | Discharge Instructions ---
Discharge Instructions Admission Reason for Admission: Acute Hyponatremia, Vertigo (Roxy Richardson PA-C) Discharge Discharge Diagnosis / Problem: Dizziness (Roxy Richardson PA-C) Discharge Goals Goal(s): Decrease discomfort, Improve function, Increase independence (Roxy Richardson PA-C) Activity Recommendations Activity Limitations: per Instructions/Follow-up section Lifting Limitations: gradually increase as tolerated Exercise/Sports Limitations: rest today, gradually increase as tolerated May Resume Sexual Activity: when tolerated Shower/Bathe: no limitations Driving or Machine Use: no limitations . (Roxy Richardson PA-C) Instructions / Follow-Up Instructions / Follow-Up You were admitted to [facility] [place] with dizziness and diagnosed with benign positional vertigo, hyponatremia, hypochloremia (vertigo, low sodium and low chloride). During your stay here you were treated with intravenous fluids and a medication called antivert or meclizine. This is to help with the feeling of dizziness. Your blood pressure medication, hydralazine was likely adding to your dehydration which caused low sodium and chloride. You should stop taking this medication! This medication has been changed to amlodipine and lisinopril- continue taking as directed. Other causes of dizziness were ruled out during your admission stay with a Brain MRI which was negative for stroke or bleed, and a carotid doppler ( ultrasound of your neck arteries) which didn't show any signs of stenosis ( filling up with plaque). Physical therapy helped to perform the Scotty-Hallpike maneuver on you to help realign the crystals in your ear. A handout has been provided to you so that you can have a member in your family complete this at home if needed. You should continue taking your medications as prescribed. Follow up with your PCP within 1 week. (Roxy Richardson PA-C) Current Hospital Diet Patient's current hospital diet: Regular Diet (Roxy Richardson PA-C) Discharge Diet Recommended Diet: AHA Diet (Heart Healthy) (Roxy Richardson PA-C) Procedures Procedures Performed: Brain MRI Carotid Doppler Echocardiogram of heart: -- Conclusions -- The left ventricle is normal in size. Ejection Fraction = 60-65%. Left ventricular systolic function is normal. The left ventricular wall motion is normal. There is severe concentric left ventricular hypertrophy. Grade I diastolic dysfunction, (abnormal relaxation pattern). Moderate valvular aortic stenosis. There is no significant aortic regurgitation. There is mild tricuspid regurgitation. Right ventricular systolic pressure is normal. (Roxy Richardson PA-C) Pending Studies Studies pending at discharge: no (Roxy Richardson PA-C) Laboratory Results Lipid Panel Test 11/15/16 08:13 Range/Units Triglycerides Level 79 0-150 mg/dl Cholesterol Level 201 H 0-200 mg/dl HDL Cholesterol 71 mg/dl Cholesterol/HDL Ratio 2.8 LDL Cholesterol, Calculated 114 mg/dl (Roxy Richardson PA-C) Medical Emergencies . Who to Call and When: Medical Emergencies: If at any time you feel your situation is an emergency, please call 911 immediately. . (Roxy Richardson PA-C) Non-Emergent Contact Non-Emergency issues call your: Primary Care Provider Call Non-Emergent contact if: temperature is above 100.5, your pain is not controlled, your pain is worsening, your pain is unusual for you, your pain is concerning you, you have any medication questions you have increased dizziness, lightheadedness, confusion, chest pain, shortness of breath, abdominal pain, nausea, vomiting, diarrhea or if you have other concerns with your health. . (Roxy Richardson PA-C) Past History Medical & Surgical History: (1) Vertigo (2) Weakness (3) Acute hyponatremia (Roxy Richardson PA-C) . "Provider Documentation" section prepared by Nata Richardson. (Roxy Richardson PA-C) Attending Attestation: Pt seen/examined and care plan d/w SELVIN Richardson on day of discharge. I agree with the reynolds components of her discharge instructions except - HYDROCHLOROTHIAZIDE has been stopped, not hydralazine. Grant Sainz MD (Grant Sainz MD) VTE Core Measure Inpt VTE Proph given/why not?: T.E.D. Stockings, SCD's (Roxy Richardson, KARLIC)
[2016-12-14] MEDS: LISINOPRIL 20 MG TAB PO SCH (08:41)
[2016-12-14] MEDS ORDERED: NRV5 PO (08:42)
[2016-12-14] MEDS ORDERED: LSN20 PO (08:42)
[2016-12-14] MEDS ORDERED: ANT25 PO (08:42)
--- NOTE | 2016-12-14 09:07 | Discharge Summary ---
Discharge Summary Date of Service Dec 14, 2016. (Roxy Richardson PA-C) Discharge Summary Admission Date: Dec 12, 2016 at 12:33 Discharge Date: Dec 14, 2016 Discharge Disposition: Home Principal Diagnosis: Benign positional vertigo Problems/Secondary Diagnoses: Hyponatremia, hypochloremia, HTN, thrombocytopenia, hypothyroidism, hyperlipidemia Procedures: Brain MRI WITH AND WITHOUT CONTRAST HISTORY: continued vertigo TECHNIQUE: Multiplanar multisequence MRI of the brain was performed both before and after the intravenous administration of contrast. COMPARISON STUDY: Head CT 12/08/2016. Brain MRI 04/04/2008. FINDINGS: There is no mass, hematoma, midline shift, or acute infarct. The paranasal sinuses are clear. The mastoid air cells are clear. The ventricles and sulci demonstrate mild age-related involutional changes. Scattered foci of T2 hyperintensity seen within the periventricular and subcortical white matter are nonspecific but suggestive of mild microvascular ischemic changes. The major vascular flow voids at the skull base are well-maintained. No abnormal enhancement. IMPRESSION: No acute intracranial abnormality. Scattered foci of T2 hyperintensity seen within the periventricular and subcortical white matter are nonspecific but favor microvascular ischemic change. Electronically signed by: Alexys Freeman M.D. 12/12/2016 11:48 AM Dictated Date/Time: 12/12/2016 11:42 AM The status of this report is Signed. CAROTID ARTERY ULTRASOUND CLINICAL HISTORY: Vertigo COMPARISON STUDY: None. TECHNIQUE: Real-time, grayscale, and color Doppler sonography of the carotid and vertebral arteries was performed. Images were viewed in the transverse and longitudinal planes. FINDINGS: There is moderate atherosclerotic plaque. Velocity measurements are listed below. COMMON CAROTID PEAK SYSTOLIC VELOCITY (CM/S): RIGHT 63 LEFT 85 ICA PEAK SYSTOLIC VELOCITY (CM/S): RIGHT 88 LEFT 77 The systolic ratios between the internal to common carotid arteries were normal. Antegrade flow is seen in the vertebral arteries. The external carotid arteries are patent. Blood pressure in the right arm measured 161/87. Blood pressure in the left arm measured 160/93. IMPRESSION: No evidence of a hemodynamically significant stenosis. Electronically signed by: Victor Manuel Woodward M.D. 12/12/2016 4:06 PM Dictated Date/Time: 12/12/2016 4:04 PM The status of this report is Signed. Echocardiogram 12/13/15 Interpretation Summary * Name: EMEKA GARCIA Study Date: 12/13/2016 10:40 AM BP: 179/90 mmHg * Patient Location: [facility] HR: 84 * : 1935 (M/d/yyyy) Gender: Male Height: 60 in * Age: 81 yrs Ethnicity: [place] Weight: 136 lb * Ordering Physician: Chandu Valdez * Referring Physician: BERNICE * Performed By: Phuong Byrne RDCS * * Reason For Study: DIZZINESS, HTN * BSA: 1.6 m2 * History: DIZZINESS, HTN * -- Conclusions -- * The left ventricle is normal in size. * Ejection Fraction = 60-65%. * Left ventricular systolic function is normal. * The left ventricular wall motion is normal. * There is severe concentric left ventricular hypertrophy. * Grade I diastolic dysfunction, (abnormal relaxation pattern). * Moderate valvular aortic stenosis. * There is no significant aortic regurgitation. * There is mild tricuspid regurgitation. * Right ventricular systolic pressure is normal. Consultations: Physical Therapy Occupational therapy (Roxy Richardson PA-C) Medication Reconciliation New Medications: Amlodipine Besylate (Amlodipine Besylate) 5 Mg Tab 5 MG PO QAM for 30 Days, #30 TAB Lisinopril (Lisinopril) 20 Mg Tab 20 MG PO QAM for 30 Days, #30 TAB Meclizine HCl (Meclizine HCl) 25 Mg Tab 25 MG PO Q8 for 3 Days, #15 TAB Take every 8 hours for 3 days, then use as needed for dizziness. Continued Medications: Levothyroxine Sodium (Levothyroxine Sodium) 50 Mcg Tab 50 MCG PO DAILY, #30 Simvastatin (Simvastatin) 20 Mg Tab 20 MG PO QPM, #90 Discontinued Medications: Hctz/Lisinopril (Lisinopril/Hctz 20/25 Mg) 1 Ea Tab 1 TAB PO QPM Potassium Chloride (Potassium Chloride Cr) 10 Meq Tab 10 MEQ PO DAILY, #30 Discharge Exam The patient was seen and examined this morning. Pt reports doing well this morning. He has been ambulating without difficulty and without any complaints of dizziness, weakness, lightheadedness. He is anticipating discharge home today. Review of Systems: Constitutional: No chills, No fever, No sweats Eyes: No diplopia, No problem reported ENT: No problem reported, No sore throat, No tinnitus Respiratory: No dyspnea at rest, No dyspnea on exertion, No shortness of breath Cardiovascular: No chest pain, No palpitations Abdomen: No constipation, No diarrhea, No nausea, No pain, No vomiting Musculoskeletal: No calf pain, No swelling Genitourinary - Male: No dysuria, No hematuria Neurologic: No balance problems, No numbness/tingling, No vertigo, No weakness Endocrine: No fatigue Integumentary: No itch, No rash Physical Exam: General Appearance: WD/WN, no apparent distress Eyes: PERRL, EOMI ENT: hearing grossly normal, pharynx normal Neck: supple, no JVD Respiratory/Chest: lungs clear, normal breath sounds, no respiratory distress, no accessory muscle use Cardiovascular: regular rate, rhythm, normal peripheral pulses, + systolic murmur (grade 2/6, heard best at RSB 2nd ICS) Abdomen / GI: normal bowel sounds, non tender, soft, no organomegaly Extremities: normal inspection, no calf tenderness, no pedal edema Neurologic/Psychiatric: alert, normal reflexes, oriented x 3 Skin: normal color, warm/dry (Roxy Richardson, PAJimy) Hospital Course H&P per Dr. Valdez: HISTORY OF PRESENT ILLNESS: This 81-year-old male patient came to the Emergency Department today because upon awakening this morning, he felt very dizzy, he did not note that the room was spinning, there did not seem to be any change in his vision back, but he felt that he could barely get out of bed without falling over. He described no chest pain, no shortness of breath, no ringing in his ears, no loss of hearing. He had no other neurologic symptoms including no unilateral weakness, no slurred speech, no difficulty in speaking, no facial droop, no problems with swallowing. The patient actually was in the Emergency Department here approximately 5 days prior, where he had similar symptoms that had been on and off for a few days. He was given a prescription for meclizine and felt that while taking as this, his symptoms improved. He did not take any meclizine yesterday and in fact told me that he had no symptoms whatsoever and they were present upon waking this morning. PHYSICAL EXAMINATION: VITAL SIGNS: Temperature 36.8, pulse 82, respiratory rate of 18, blood pressure 170/92, pulse ox 97% on room air. GENERAL: The patient is awake, alert and oriented x3, not in acute distress. HEENT: TMs are seen minimally and the patient does have cerumen in both canals but is not completely blocking either side. It does not appear to be pushing against the tympanic membrane. His throat is clear. Extraocular muscles intact. Pupils equal, round and react to light and accommodation. His mucous membranes were moist. Tongue is midline and uvula is midline. NECK: No JVD or lymphadenopathy. LUNGS: Clear to auscultation bilaterally. No rales, rhonchi or wheezes. HEART: Regular. Normal S1, S2 with a 1/6 systolic murmur. ABDOMEN: Soft, nontender, nondistended, positive bowel sounds. EXTREMITIES: No clubbing, cyanosis or edema. NEUROLOGIC: Cranial nerves II-XII are grossly intact and nonfocal. There is no nystagmus. I was not able to reproduce vertigo with rapid eye movement. SKIN: Warm and dry without rash. PSYCHIATRIC: The patient is pleasant and cooperative. No signs any psychiatric abnormality. Hospital Course 81 yo M admitted with acute onset of vertigo with intermittent vertiginous episodes over the past 10 days. Had improvement with meclizine initially but stated his sx seem to be independent of taking this medication. While admitted he was rehydrated with fluid as it appeared HCTZ was causing hyponatremia and hypochloridemia. His blood pressure medications were changed to amlodipine and lisinopril which controlled his blood pressure adequately. Electrolytes improved with fluids and sodium tablets as well. Pt was placed on meclizine 25 mg Q8H and vertigo significantly improved. Echocardiogram was completed showing preserved EF 60-65% with grade 1 diastolic dysfunction, and moderate aortic stenosis. Carotid doppers did not show extensive or hemodynamically compromising stenosis. Brain MRI was negative for acute findings. Pt was discharged with BP med changes as above and meclizine x 3 more days. The patient should follow with PCP within 1 week, and ENT if his symptoms return. Vertigo / hyponatremia / hypochloremia - Holding HCTZ due to low sodium and chloride, started on amlodipine along with lisinopril with adequate blood pressure control. - No need for IVFs as pt is tolerating oral diet without difficulty. - Pt is being seen by balance specialist and had Scotty-Hallpike maneuver today, will continue to have this performed at least 2-3 x daily. Pt has a sister who will be staying with him at home for a while (lives alone) - maybe she can be taught how to do this for at home. - Will need ENT outpatient f/u for this if recurrs - Continue PT/OT consults - Carotid dopplers ordered and shows moderate artery plaque but not hemodynamically significant stenosis - ECHO showing grade 1 diastolic dysfunction with moderate aortic stenosis. The patient will need a repeat ECHO within 2 years to evaluate aortic stenosis. Conclusions -- * The left ventricle is normal in size. * Ejection Fraction = 60-65%. * Left ventricular systolic function is normal. * The left ventricular wall motion is normal. * There is severe concentric left ventricular hypertrophy. * Grade I diastolic dysfunction, (abnormal relaxation pattern). * Moderate valvular aortic stenosis. * There is no significant aortic regurgitation. * There is mild tricuspid regurgitation. * Right ventricular systolic pressure is normal. - Stop NaCl 1 gm tabs with each meal- sodium and chloride back to normal limits. Thrombocytopenia - LDV=085 today, will continue to monitor. No heparin or lovenox for DVT ppx - Appears results have been low even as far back as in 2011 so this is not a new finding. Will have PCP continue to follow this. Hypertension - Continue lisinopril 20 mg daily - Stop HCTZ, do not resume upon discharge. - Continue amlodipine 5 mg daily started this admission. Hypothyroidism - Continue levothyroxine 50 mcg daily Hyperlipidemia - Cont simvastatin 20 mg daily DVT ppx: Teds, SCDS, oob with assistance CODE STATUS: FULL CODE Disposition: From home, lives alone, pt has sister planning to live with him for a while after this admission. Stable for discharge home today. Total Time Spent: Greater than 30 minutes This includes examination of the patient, discharge planning, medication reconciliation, and communication with other providers. (Roxy Richardson PA-C) Attending Attestation: Pt seen/examined, chart reviewed, care plan d/w SELVIN Richardson on day of discharge. I agree w/ the reynolds components of her discharge summary. 81yo male who presented with severe vertigo that was worsened by head movement. Extensive work-up failed to show a central cause of his vertigo. 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 He was treated with antivert, nausea medications, and had bayron maneuver by PT with significant improvement in his symptoms. He was also found to have moderate hyponatremia with Na of 126 at presentation. This was 2nd to chronic HCTZ use. He was hydrated and at discharge his Na was normal. He will STOP his HCTZ and instead use amlodipine in eze for BP control. Discharge exam - gen - nad eyes - minimal horizontal nystagmus with lateral gaze heart - RRR, s1, s2 lungs - CTA b/l abd - soft, NT ext - no edema neuro - no ataxia with finger/nose/finger maneuver or with walking Grant Sainz MD (Grant Sainz MD) Discharge Instructions Please refer to the electronic Patient Visit Report (Discharge Instructions) for additional information. (Roxy Richardson PA-C) Follow-Up Follow up with your Primary Care Provider within 1 week. Follow up with ENT if symptoms recurr. (Roxy Richardson PA-C) Additional Copies To David Nevarez M.D.
[2016-12-14 10:27] VITALS: BP 138/77; PULSE 85; TEMP 36.4; O2SAT 97
== END 2016-12-14 11:30 | disposition home or self-care (01) | DRG 149 ==
LOC: ENRESERVTM → ENRESERVDT → C.EDB 09:46 → C.MED 12:33
PROVIDERS: ADMIT Hospitalist; ATTEND Internal Medicine
DX: H81.10 Benign paroxysmal vertigo, unspecified ear (principal); E87.1 Hypo-osmolality and hyponatremia; E87.8 Other disorders of electrolyte and fluid balance, not elsewhere classified; T50.2X5A Adverse effect of carbonic-anhydrase inhibitors, benzothiadiazides and other diuretics, initial encounter; D69.6 Thrombocytopenia, unspecified; I10 Essential (primary) hypertension; E03.9 Hypothyroidism, unspecified; E78.5 Hyperlipidemia, unspecified; K57.90 Diverticulosis of intestine, part unspecified, without perforation or abscess without bleeding; I35.0 Nonrheumatic aortic (valve) stenosis; Z82.49 Family history of ischemic heart disease and other diseases of the circulatory system

== ENCOUNTER → 2017-04-08 | Outpatient (CLI) | payer OTHER ==
[~2017-04-08] MED LIST changes: +ANT25 PO; -LSN/2025 PO; +LSN20 PO; -NAPR1TAB9 PO; +NRV5 PO; -POTA10TA30 PO
--- NOTE | 2017-04-08 11:49 | DIAGNOSTIC IMAGING REPORT ---
RIGHT SHOULDER 3 VIEWS HISTORY: M25.511 Shoulder pain, [id number] Muscle [id number] Right COMPARISON: None. FINDINGS: There is no fracture or dislocation. Soft tissues are unremarkable. No radiopaque foreign bodies. The right clavicle is intact. Mild degenerative changes within the glenohumeral and AC joints. IMPRESSION: No fractures. Mild osteoarthritis. Electronically signed by: Alexys Freeman M.D. 04/08/2017 11:48 AM Dictated Date/Time: 04/08/2017 11:47 AM
== END | disposition home or self-care (01) ==
LOC: C.RAD1850 11:34
PROVIDERS: ATTEND Physician Assistant Medical
DX: T14.8 Other injury of unspecified body region (principal); M25.511 Pain in right shoulder; X58.XXXA Exposure to other specified factors, initial encounter; M19.011 Primary osteoarthritis, right shoulder

== ENCOUNTER → 2017-10-18 | Outpatient (CLI) | payer OTHER ==
[~2017-10-18] MED LIST changes: +LISI-726 PO; -LSN20 PO
== END | disposition home or self-care (01) ==
LOC: C.LAB1850 09:59
PROVIDERS: ATTEND Physician Assistant Medical
DX: G25.81 Restless legs syndrome (principal)

== ENCOUNTER → 2017-12-07 | Outpatient (CLI) | payer OTHER ==
[~2017-12-07] MED LIST changes: -LISI-726 PO; +LSN20 PO
[2017-12-07 12:32] LABS: INFLUENZA B ANTIGEN Neg for Influ B (NEG)
== END | disposition home or self-care (01) ==
LOC: C.LAB1850 10:11
PROVIDERS: ATTEND Internal Medicine Pulmonary Disease
DX: R19.7 Diarrhea, unspecified (principal)

== ENCOUNTER → 2017-12-09 | Outpatient (CLI) | payer OTHER ==
[2017-12-09 09:51] LABS: ALBUMIN 3.5 gm/dl (3.4-5.0); ALT/SGPT 49 U/L (12-78); AST/SGOT 47 U/L (15-37); BLOOD UREA NITROGEN 14 mg/dl (7-18); CALCIUM 8.4 mg/dl (8.5-10.1); CARBON DIOXIDE 26 mmol/L (21-32); CREATININE 0.83 mg/dl (0.60-1.40); GLUCOSE 96 mg/dl (70-99); POTASSIUM 3.9 mmol/L (3.5-5.1); SODIUM 124 mmol/L (136-145)
[2017-12-09 10:01] LABS: ALKALINE PHOSPHATASE 64 U/L (45-117); CHOLESTEROL 116 mg/dl (0-200); LDL CHOLESTEROL CALCULATED 58 mg/dl; TOTAL PROTEIN 6.6 gm/dl (6.4-8.2)
[2017-12-09 10:02] LABS: BASO % 0.5 %; BASO ABS # 0.02 K/uL (0-0.2); EOS % 3.9 %; EOS ABS # 0.15 K/uL (0-0.5); HEMATOCRIT 37.4 % (42-52); HEMOGLOBIN 13.3 g/dL (14.0-18.0); IG# 0.02 K/uL (0.00-0.02); LYMPH % 35.7 %; LYMPH ABS # 1.36 K/uL (1.2-3.4); MEAN CORPUSCULAR HEMOGLOBIN 30.6 pg (25-34); MEAN CORPUSCULAR HGB CONC 35.6 g/dl (32-36); MEAN PLATELET VOLUME 10.8 fL (7.4-10.4); MONO % 8.7 %; MONO ABS # 0.33 K/uL (0.11-0.59); NEUT % 50.7 %; NEUT ABS # 1.93 K/uL (1.4-6.5); PLATELET COUNT 89 K/uL (130-400); RED CELL DISTRIBUTION WIDTH CV 12.8 % (11.5-14.5); RED CELL DISTRIBUTION WIDTH SD 40.6 fL (36.4-46.3); WHITE BLOOD COUNT 3.81 K/uL (4.8-10.8)
== END | disposition home or self-care (01) ==
LOC: C.LAB1850 07:43
PROVIDERS: ATTEND Internal Medicine Pulmonary Disease
DX: E03.9 Hypothyroidism, unspecified (principal)

== ENCOUNTER 2023-06-10 00:57 | Inpatient (IN) ==
[2023-06-10] MEDS ORDERED: SODIUM CHLORIDE 0.9% 1000ML 500 ML IV SCH (03:15)
[2023-06-10 03:50] LABS: Appearance Urine Clear (Clear); Bacteria Urine Automated Negative (Negative); Bilirubin Urine Negative (Negative); Blood Urine Trace (Negative); Cast Urine Automated 0 /lpf (0-5); Color Urine Yellow; Epithelial Cell Urine Auto 0-5 /lpf (0-5); Glucose Urine UA Negative (Negative); Ketones Urine Negative (Negative); Leukocyte Esterase Urine Negative (Negative); Nitrite Urine Negative (Negative); Protein Urine Negative (Negative); RBC Urine Automated 0-4 /hpf (0-4); Urobilinogen Urine Negative (Negative); WBC Urine Automated 0 /hpf (0-5); pH Urine 7.5 (4.5-7.5)
[2023-06-10 03:52] LABS: Hemoglobin 12.6 g/dl (14.0-18.0); Mean Corpuscular Hemoglobin 31.7 pg (25.0-34.0); Mean Corpuscular Volume 88.2 fL (80.0-100.0); Mean Platelet Volume 11.6 fL (9.4-12.4); Platelet Count 73 K/uL (130-400); RDW Coefficient of Variation 12.6 % (11.5-14.5); RDW Standard Deviation 41.3 fL (36.4-46.3); Red Blood Count 3.97 M/uL (4.70-6.10); White Blood Count 9.88 K/ul (4.8-10.8)
[2023-06-10 04:03] LABS: BUN Creatinine Ratio 20.9 (10-20); Bilirubin Direct 0.2 mg/dl (0-0.2); Bilirubin,Total 1.1 mg/dl (0.2-1.0); Calcium 8.6 mg/dl (8.6-10.3); Creatinine Clr Calc Pharmacy 43.1 ml/min; Est GFR (African American) 89.1 ml/min; Est GFR (Non-African American) 76.9 ml/min; Magnesium 1.4 mg/dl (1.7-2.4); Potassium 3.8 mmol/L (3.5-5.1); Total Protein 5.9 gm/dl (6.0-8.3)
[2023-06-10 04:04] LABS: Basophils # (auto) 0.06 K/uL (0.00-0.20); Basophils % (auto) 0.6 %; Echinocytes 1+; Eosinophils # (auto) 0.04 K/uL (0.00-0.50); Eosinophils % (auto) 0.4 %; Immature Granulocytes # (auto) 0.12 K/uL (0.01-0.20); Immature Granulocytes % (auto) 1.2 %; Monocytes # (auto) 0.23 K/uL (0.11-0.59); Monocytes % (auto) 2.3 %; Neutrophils # (auto) 9.03 K/uL (1.40-6.50); Neutrophils % (auto) 91.5 %; Polychromasia 1+
[2023-06-10] MEDS ORDERED: SODIUM CHLORIDE 0.9% 500 ML IV ONE (04:11)
[2023-06-10] MEDS ORDERED: ACETAMINOPHEN 500 MG TAB PO STA (04:11)
[2023-06-10] MEDS ORDERED: CEFEPIME 2,000 MG/20 ML VIAL IV STA (04:11)
[2023-06-10] MEDS ORDERED: MAGNESIUM SULFATE / D5W 1 GM/100 ML BAG IV STA (04:12)
[2023-06-10] MEDS: SODIUM CHLORIDE 0.9% 500 ML IV SCH ×2 (05:06→09:01)
[2023-06-10 05:35] LABS: Influenza A virus by PCR Negative (Neg); Influenza B virus by PCR Negative (Neg); RSV by PCR Negative (Neg); SARS CoV2 RNA(COVID-19) Ceph NEGATIVE (Negative)
--- NOTE | 2023-06-10 05:43 | Emergency Department Note ---
Impression & Plan Pneumonia, Acute hyponatremia, Hypomagnesemia Admit to the [facility] ED Provider Note NAME: EMEKA GARCIA AGE: 87 SEX: M ARRIVES VIA: Ambulance INFORMANT: Patient ED PROVIDER(S): Haritha Bustamante DO CHIEF COMPLAINT: Shaking PLAN: Disposition: Admit to the [facility] Condition: Stable MEDICAL DECISION MAKING: This is an 87-year-old male patient who presents to the emergency department after shaking episode at home. Here in the emergency department, he was noted to be tachycardic and did have an episode of cough productive of thick yellow/brown sputum. A septic protocol was performed. Patient is noted to have a left-sided pneumonia. The lactate and procalcitonin were normal but he was noted to be hyponatremic and hypomagnesemic. There was no leukocytosis. Hemoglobin was slightly low at 12.6. Patient's troponin was mildly elevated at 25. Patient was treated with IV cefepime. I discussed the case with the [facility] Hospitalist. Triage Nursing notes reviewed and agree with them. Prior medical records reviewed Vital Signs: reviewed and remarkable for tachycardia Differential diagnosis: Sepsis, pneumonia, UTI, bronchitis, COVID-19, bacteremia ER treatment provided: Twelve-lead EKG Cardiac monitoring IV normal saline bolus Oral Tylenol IV magnesium IV cefepime Diagnostics interpreted by me: ECG: Sinus tachycardia at rate of 122 Cardiac Monitoring: Sinus tachycardia at a rate of 106 Laboratory studies: See below Imaging studies: As per my independent interpretation Portable chest x-ray: Significant left lower lobe pulmonary opacity consistent with pneumonia. HPI: 87/M arrives for evaluation of shaking. Patient developed a sudden onset of shaking this evening. There were no other associated symptoms. PAST MEDICAL HISTORY:See Below PAST SURGICAL HISTORY:See Below FAMILY HISTORY:See Below SOCIAL HISTORY:See Below HOME MEDICATIONS:See list ALLERGIES:None VITALS:See Below PHYSICAL EXAMINATION: HEENT: Head - normocephalic and atraumatic. Pupils are equal, round, and reactive to light. Extraocular eye muscles are intact, and sclera are anicteric. Nose - moist nasal mucosa without discharge. Mouth - moist buccal mucosa. Oropharynx is nonerythematous and there is no tonsillar exudate or edema noted. Neck: Supple; no cervical lymphadenopathy. Heart: Tachycardic rate and regular rhythm there is a normal S1 and S2 with no murmurs, clicks, or gallops appreciated. Lungs: Clear to auscultation bilaterally with no wheezes, rales, or rhonchi. Abdomen: Soft, completely nontender, nondistended, with good bowel sounds. There are no palpable pulsatile masses or hepatosplenomegaly. There is no guarding, rigidity, or rebound noted. Extremities: No evidence of cyanosis, clubbing, or edema. There are easily palpable peripheral pulses. Skin: warm and dry with good turgor and no rashes. ED COURSE: Times/Reassessments: 255: Patient was evaluated in room C1. A complete history and physical was performed including a septic protocol. Patient was bolused with IV normal saline solution. Twelve-lead EKG was obtained. An order was placed for continuous cardiac monitoring. The patient was in a sinus tachycardia at a rate of 106. Portable chest x-ray was performed which showed evidence of a left-sided pneumonia. The patient was given a dose of IV cefepime. Patient remained hemodynamically stable. Patient was given oral Tylenol for his fever. He was started on IV magnesium replacement. I discussed the case with the [facility] Hospitalist. Haritha Bustamante DO Past Med/Surg History Medical History Carpal tunnel syndrome Diverticulitis Dysphagia GERD (gastroesophageal reflux disease) History of basal cell carcinoma History of squamous cell carcinoma HLD (hyperlipidemia) HTN (hypertension) Hypothyroidism Lyme disease, acute Osteoarthritis Pilonidal cyst Sensorineural hearing loss (SNHL) Severe aortic stenosis Surgical History History of basal cell carcinoma (BCC) excision History of cataract surgery History of colonoscopy (~2001) History of left knee replacement History of right knee joint replacement History of squamous cell carcinoma excision Family History Family/Other Hypertension Arthritis Colon, diverticulosis Mother Hypertension Father Colon cancer Social History Smoking Status: Former smoker Second Hand Exposure: No; Do You Dip or Chew Tobacco: No; Hx Alcohol Use: No Hx Substance Use: No Preferred Language: Stateless Communication Ability: Effective Pocket Builder Required: No Beliefs That Will Affect Care: None marital status: / Current Living Situation: Family Current Living Situation Comment: lives with sister current occupational status: retired Feels Safe at Home: Yes Assistive Devices: Denture - Upper and Glasses Allergies Allergies Allergy/AdvReac Type Severity Reaction Status Date / Time No Known Drug Allergies Allergy NKDA Verified 05/23/23 08:24 Home Meds Home Medications Medication Instructions Recorded Confirmed levothyroxine 50 mcg tablet 50 mcg PO DAILYBB 06/10/23 06/10/23 Previous Rx's Medication Instructions Recorded lisinopril 20 1 tab PO QAM #90 tabs 12/28/22 mg-hydrochlorothiazide 25 mg tablet simvastatin 20 mg tablet 20 mg PO QPM #90 tabs 12/28/22 triamcinolone acetonide 0.1 % 1 applic topical BID #454 grams 01/04/23 topical cream pantoprazole 20 mg tablet,delayed 20 mg PO DAILY intestinal 01/14/23 release (Protonix) metaplasia #30 tabs metoprolol succinate 25 mg 12.5 mg PO DAILY #45 tabs 02/09/23 tablet,extended release 24 hr potassium chloride 10 mEq 10 meq PO QPM #90 tabs 03/28/23 tablet,extended release nystatin 100,000 unit/gram topical 1 applic topical BID 2 weeks #30 04/13/23 cream grams Results & Data (ED) Vital Signs Vital Signs - 24 hr 06/10/23 00:51 06/10/23 01:01 06/10/23 00:51 Temperature 37.1 C Temperature Source Oral Pulse Rate 124 H 125 H Pulse Rate from SpO2 Sensor Respiratory Rate 18 Respiratory Effort / Characteristics Non-Labored Non-Labored Respiratory Depth Normal Normal Blood Pressure 171/106 H Blood Pressure Mean 127 Pulse Oximetry 95 Oxygen Delivery Method Room Air Sepsis Recent Fever Within 48 Hours No Sepsis New/Unexplained Change in Mental Status No Sepsis Action Taken by Nursing No Action Required 06/10/23 01:01 06/10/23 01:02 06/10/23 01:10 Temperature Temperature Source Pulse Rate 123 H 116 H Pulse Rate from SpO2 Sensor 123 H 118 H Respiratory Rate 24 24 Respiratory Effort / Characteristics Respiratory Depth Blood Pressure 171/106 H Blood Pressure Mean 134 Pulse Oximetry 93 95 Oxygen Delivery Method Sepsis Recent Fever Within 48 Hours Sepsis New/Unexplained Change in Mental Status Sepsis Action Taken by Nursing 06/10/23 01:20 06/10/23 01:30 06/10/23 01:30 Temperature Temperature Source Pulse Rate 114 H 121 H Pulse Rate from SpO2 Sensor 113 H 115 H Respiratory Rate 24 23 Respiratory Effort / Characteristics Respiratory Depth Blood Pressure 178/105 H Blood Pressure Mean 124 Pulse Oximetry 95 85 L Oxygen Delivery Method Sepsis Recent Fever Within 48 Hours Sepsis New/Unexplained Change in Mental Status Sepsis Action Taken by Nursing 06/10/23 01:40 06/10/23 01:42 06/10/23 01:42 Temperature Temperature Source Pulse Rate 120 H 119 H Pulse Rate from SpO2 Sensor Respiratory Rate 20 28 H Respiratory Effort / Characteristics Respiratory Depth Blood Pressure 175/105 H Blood Pressure Mean 126 Pulse Oximetry Oxygen Delivery Method Sepsis Recent Fever Within 48 Hours Sepsis New/Unexplained Change in Mental Status Sepsis Action Taken by Nursing 06/10/23 01:50 06/10/23 02:00 06/10/23 02:00 Temperature Temperature Source Pulse Rate 115 H 115 H Pulse Rate from SpO2 Sensor 115 H 115 H Respiratory Rate 27 H 28 H Respiratory Effort / Characteristics Respiratory Depth Blood Pressure 141/86 H Blood Pressure Mean 115 Pulse Oximetry 94 94 Oxygen Delivery Method Sepsis Recent Fever Within 48 Hours Sepsis New/Unexplained Change in Mental Status Sepsis Action Taken by Nursing 06/10/23 03:03 06/10/23 03:03 06/10/23 02:10 Temperature Temperature Source Pulse Rate 113 H Pulse Rate from SpO2 Sensor 113 H Respiratory Rate 28 H Respiratory Effort / Characteristics Non-Labored Respiratory Depth Normal Blood Pressure Blood Pressure Mean Pulse Oximetry 94 94 Oxygen Delivery Method Room Air Sepsis Recent Fever Within 48 Hours Sepsis New/Unexplained Change in Mental Status Sepsis Action Taken by Nursing 06/10/23 02:20 06/10/23 02:30 06/10/23 02:30 Temperature Temperature Source Pulse Rate 115 H 113 H Pulse Rate from SpO2 Sensor 115 H 113 H Respiratory Rate 25 H 24 Respiratory Effort / Characteristics Respiratory Depth Blood Pressure 137/81 Blood Pressure Mean 96 Pulse Oximetry 96 94 Oxygen Delivery Method Sepsis Recent Fever Within 48 Hours Sepsis New/Unexplained Change in Mental Status Sepsis Action Taken by Nursing 06/10/23 02:40 06/10/23 02:50 06/10/23 03:00 Temperature Temperature Source Pulse Rate 113 H 113 H Pulse Rate from SpO2 Sensor 113 H 113 H Respiratory Rate 23 21 Respiratory Effort / Characteristics Respiratory Depth Blood Pressure 123/79 Blood Pressure Mean 91 Pulse Oximetry 92 92 Oxygen Delivery Method Sepsis Recent Fever Within 48 Hours Sepsis New/Unexplained Change in Mental Status Sepsis Action Taken by Nursing 06/10/23 03:00 06/10/23 03:33 06/10/23 03:33 Temperature 37.4 C Temperature Source Oral Pulse Rate 117 H Pulse Rate from SpO2 Sensor 117 H Respiratory Rate 23 Respiratory Effort / Characteristics Non-Labored Respiratory Depth Normal Blood Pressure Blood Pressure Mean Pulse Oximetry 94 Oxygen Delivery Method Sepsis Recent Fever Within 48 Hours Sepsis New/Unexplained Change in Mental Status Sepsis Action Taken by Nursing 06/10/23 03:10 06/10/23 03:20 06/10/23 03:30 Temperature Temperature Source Pulse Rate 116 H 120 H Pulse Rate from SpO2 Sensor 116 H 119 H Respiratory Rate 23 24 Respiratory Effort / Characteristics Respiratory Depth Blood Pressure 118/76 Blood Pressure Mean 86 Pulse Oximetry 94 95 Oxygen Delivery Method Sepsis Recent Fever Within 48 Hours Sepsis New/Unexplained Change in Mental Status Sepsis Action Taken by Nursing 06/10/23 03:30 06/10/23 05:02 06/10/23 05:18 Temperature Temperature Source Pulse Rate 113 H 107 H Pulse Rate from SpO2 Sensor Respiratory Rate 23 Respiratory Effort / Characteristics Non-Labored Respiratory Depth Normal Blood Pressure Blood Pressure Mean Pulse Oximetry Oxygen Delivery Method Sepsis Recent Fever Within 48 Hours Sepsis New/Unexplained Change in Mental Status Sepsis Action Taken by Nursing 06/10/23 05:00 06/10/23 05:31 06/10/23 03:40 Temperature Temperature Source Pulse Rate 106 H 117 H Pulse Rate from SpO2 Sensor Respiratory Rate 21 Respiratory Effort / Characteristics Non-Labored Respiratory Depth Normal Blood Pressure Blood Pressure Mean Pulse Oximetry Oxygen Delivery Method Sepsis Recent Fever Within 48 Hours Sepsis New/Unexplained Change in Mental Status Sepsis Action Taken by Nursing 06/10/23 03:50 06/10/23 04:00 06/10/23 04:00 Temperature Temperature Source Pulse Rate 110 H 117 H Pulse Rate from SpO2 Sensor Respiratory Rate 24 20 Respiratory Effort / Characteristics Respiratory Depth Blood Pressure 168/106 H Blood Pressure Mean 114 Pulse Oximetry Oxygen Delivery Method Sepsis Recent Fever Within 48 Hours Sepsis New/Unexplained Change in Mental Status Sepsis Action Taken by Nursing 06/10/23 04:10 06/10/23 04:20 06/10/23 04:30 Temperature Temperature Source Pulse Rate 110 H 108 H Pulse Rate from SpO2 Sensor Respiratory Rate 22 23 Respiratory Effort / Characteristics Respiratory Depth Blood Pressure 122/69 Blood Pressure Mean 85 Pulse Oximetry 95 Oxygen Delivery Method Sepsis Recent Fever Within 48 Hours Sepsis New/Unexplained Change in Mental Status Sepsis Action Taken by Nursing 06/10/23 04:30 06/10/23 04:40 06/10/23 04:50 Temperature Temperature Source Pulse Rate 106 H 111 H 114 H Pulse Rate from SpO2 Sensor Respiratory Rate 23 20 21 Respiratory Effort / Characteristics Respiratory Depth Blood Pressure Blood Pressure Mean Pulse Oximetry Oxygen Delivery Method Sepsis Recent Fever Within 48 Hours Sepsis New/Unexplained Change in Mental Status Sepsis Action Taken by Nursing 06/10/23 05:00 06/10/23 05:00 06/10/23 05:10 Temperature Temperature Source Pulse Rate 109 H 114 H Pulse Rate from SpO2 Sensor 110 H 115 H Respiratory Rate 23 25 H Respiratory Effort / Characteristics Respiratory Depth Blood Pressure 116/71 Blood Pressure Mean 76 Pulse Oximetry 94 92 Oxygen Delivery Method Sepsis Recent Fever Within 48 Hours Sepsis New/Unexplained Change in Mental Status Sepsis Action Taken by Nursing 06/10/23 05:20 06/10/23 05:30 06/10/23 05:30 Temperature Temperature Source Pulse Rate 108 H 105 H Pulse Rate from SpO2 Sensor 85 98 H Respiratory Rate 22 21 Respiratory Effort / Characteristics Respiratory Depth Blood Pressure 90/64 L Blood Pressure Mean 73 Pulse Oximetry 94 94 Oxygen Delivery Method Sepsis Recent Fever Within 48 Hours Sepsis New/Unexplained Change in Mental Status Sepsis Action Taken by Nursing Laboratory Data 06/10/23 03:20 06/10/23 03:20 Lab Results 06/10/23 06/10/23 06/10/23 Range/Units 01:05 01:45 03:20 WBC 9.88 (4.8-10.8) K/ul RBC 3.97 L (4.70-6.10) M/uL Hgb 12.6 L (14.0-18.0) g/dl Hct 35.0 L (42.0-52.0) % MCV 88.2 (80.0-100.0) fL MCH 31.7 (25.0-34.0) pg MCHC 36.0 (32.0-36.0) g/dL RDW Std Deviation 41.3 (36.4-46.3) fL RDW Coeff of [place] 12.6 (11.5-14.5) % Plt Count 73 L (130-400) K/uL MPV 11.6 (9.4-12.4) fL Immature Gran % (Auto) 1.2 % Neut % (Auto) 91.5 % Lymph % (Auto) 4.0 % [place] % (Auto) 2.3 % Eos % (Auto) 0.4 % Baso % (Auto) 0.6 % Neut # (Auto) 9.03 H (1.40-6.50) K/uL Lymph # (Auto) 0.40 L (1.20-3.40) K/uL [place] # (Auto) 0.23 (0.11-0.59) K/uL Eos # (Auto) 0.04 (0.00-0.50) K/uL Baso # (Auto) 0.06 (0.00-0.20) K/uL Immature Gran # (Auto) 0.12 (0.01-0.20) K/uL Polychromasia 1+ Echinocytes 1+ Sodium (136-145) mmol/L Potassium (3.5-5.1) mmol/L Chloride (98-107) mmol/L Carbon Dioxide (21-32) mmol/L Anion Gap (3-11) BUN (6-23) mg/dl Creatinine (0.6-1.4) mg/dl Est Cr Clr Drug Dosing ml/min Est GFR ( Amer) ml/min Est GFR (Non-Af Amer) ml/min BUN/Creatinine Ratio (10-20) Glucose (70-99(Fasting)) mg/dl POC Glucose 117 H (70-99) mg/dl Lactate (0.4-2.0) mmol/L Calcium (8.6-10.3) mg/dl Magnesium (1.7-2.4) mg/dl Total Bilirubin (0.2-1.0) mg/dl Direct Bilirubin (0-0.2) mg/dl AST (13-39) U/L ALT (7-52) U/L Alkaline Phosphatase (34-104) U/L Troponin I High Sens (0-20) pg/ml Total Protein (6.0-8.3) gm/dl Albumin (3.4-5.0) gm/dl Procalcitonin (0-0.5) ng/ml Urine Color Yellow Urine Appearance Clear (Clear) Urine pH 7.5 (4.5-7.5) Ur Specific [place] 1.010 (1.000-1.030) Urine Protein Negative (Negative) Urine Glucose (UA) Negative (Negative) Urine Ketones Negative (Negative) Urine Blood Trace H (Negative) Urine Nitrite Negative (Negative) Urine Bilirubin Negative (Negative) Urine Urobilinogen Negative (Negative) Ur Leukocyte Esterase Negative (Negative) Urine WBC (Auto) 0 (0-5) /hpf Urine RBC (Auto) 0-4 (0-4) /hpf U Hyaline Cast (Auto) 0 (0-5) /lpf U Epithel Cells (Auto) 0-5 (0-5) /lpf Urine Bacteria (Auto) Negative (Negative) SARS-CoV-2 (PCR) (Negative) Influenza Type A (PCR) (Neg) Influenza Type B (PCR) (Neg) RSV (RT-PCR) (Neg) 06/10/23 06/10/23 06/10/23 Range/Units 03:20 03:20 03:20 WBC (4.8-10.8) K/ul RBC (4.70-6.10) M/uL Hgb (14.0-18.0) g/dl Hct (42.0-52.0) % MCV (80.0-100.0) fL MCH (25.0-34.0) pg MCHC (32.0-36.0) g/dL RDW Std Deviation (36.4-46.3) fL RDW Coeff of [place] (11.5-14.5) % Plt Count (130-400) K/uL MPV (9.4-12.4) fL Immature Gran % (Auto) % Neut % (Auto) % Lymph % (Auto) % [place] % (Auto) % Eos % (Auto) % Baso % (Auto) % Neut # (Auto) (1.40-6.50) K/uL Lymph # (Auto) (1.20-3.40) K/uL [place] # (Auto) (0.11-0.59) K/uL Eos # (Auto) (0.00-0.50) K/uL Baso # (Auto) (0.00-0.20) K/uL Immature Gran # (Auto) (0.01-0.20) K/uL Polychromasia Echinocytes Sodium 129 L (136-145) mmol/L Potassium 3.8 (3.5-5.1) mmol/L Chloride 98 (98-107) mmol/L Carbon Dioxide 25 (21-32) mmol/L Anion Gap 6 (3-11) BUN 18 (6-23) mg/dl Creatinine 0.86 (0.6-1.4) mg/dl Est Cr Clr Drug Dosing 43.1 ml/min Est GFR ( Amer) 89.1 ml/min Est GFR (Non-Af Amer) 76.9 ml/min BUN/Creatinine Ratio 20.9 H (10-20) Glucose 116 H (70-99(Fasting)) mg/dl POC Glucose (70-99) mg/dl Lactate 0.9 (0.4-2.0) mmol/L Calcium 8.6 (8.6-10.3) mg/dl Magnesium 1.4 L (1.7-2.4) mg/dl Total Bilirubin 1.1 H (0.2-1.0) mg/dl Direct Bilirubin 0.2 (0-0.2) mg/dl AST 16 (13-39) U/L ALT 8 (7-52) U/L Alkaline Phosphatase 55 (34-104) U/L Troponin I High Sens 25.0 H (0-20) pg/ml Total Protein 5.9 L (6.0-8.3) gm/dl Albumin 4.0 (3.4-5.0) gm/dl Procalcitonin 0.30 (0-0.5) ng/ml Urine Color Urine Appearance (Clear) Urine pH (4.5-7.5) Ur Specific [place] (1.000-1.030) Urine Protein (Negative) Urine Glucose (UA) (Negative) Urine Ketones (Negative) Urine Blood (Negative) Urine Nitrite (Negative) Urine Bilirubin (Negative) Urine Urobilinogen (Negative) Ur Leukocyte Esterase (Negative) Urine WBC (Auto) (0-5) /hpf Urine RBC (Auto) (0-4) /hpf U Hyaline Cast (Auto) (0-5) /lpf U Epithel Cells (Auto) (0-5) /lpf Urine Bacteria (Auto) (Negative) SARS-CoV-2 (PCR) (Negative) Influenza Type A (PCR) (Neg) Influenza Type B (PCR) (Neg) RSV (RT-PCR) (Neg) 06/10/23 Range/Units 04:45 WBC (4.8-10.8) K/ul RBC (4.70-6.10) M/uL Hgb (14.0-18.0) g/dl Hct (42.0-52.0) % MCV (80.0-100.0) fL MCH (25.0-34.0) pg MCHC (32.0-36.0) g/dL RDW Std Deviation (36.4-46.3) fL RDW Coeff of [place] (11.5-14.5) % Plt Count (130-400) K/uL MPV (9.4-12.4) fL Immature Gran % (Auto) % Neut % (Auto) % Lymph % (Auto) % [place] % (Auto) % Eos % (Auto) % Baso % (Auto) % Neut # (Auto) (1.40-6.50) K/uL Lymph # (Auto) (1.20-3.40) K/uL [place] # (Auto) (0.11-0.59) K/uL Eos # (Auto) (0.00-0.50) K/uL Baso # (Auto) (0.00-0.20) K/uL Immature Gran # (Auto) (0.01-0.20) K/uL Polychromasia Echinocytes Sodium (136-145) mmol/L Potassium (3.5-5.1) mmol/L Chloride (98-107) mmol/L Carbon Dioxide (21-32) mmol/L Anion Gap (3-11) BUN (6-23) mg/dl Creatinine (0.6-1.4) mg/dl Est Cr Clr Drug Dosing ml/min Est GFR ( Amer) ml/min Est GFR (Non-Af Amer) ml/min BUN/Creatinine Ratio (10-20) Glucose (70-99(Fasting)) mg/dl POC Glucose (70-99) mg/dl Lactate (0.4-2.0) mmol/L Calcium (8.6-10.3) mg/dl Magnesium (1.7-2.4) mg/dl Total Bilirubin (0.2-1.0) mg/dl Direct Bilirubin (0-0.2) mg/dl AST (13-39) U/L ALT (7-52) U/L Alkaline Phosphatase (34-104) U/L Troponin I High Sens (0-20) pg/ml Total Protein (6.0-8.3) gm/dl Albumin (3.4-5.0) gm/dl Procalcitonin (0-0.5) ng/ml Urine Color Urine Appearance (Clear) Urine pH (4.5-7.5) Ur Specific [place] (1.000-1.030) Urine Protein (Negative) Urine Glucose (UA) (Negative) Urine Ketones (Negative) Urine Blood (Negative) Urine Nitrite (Negative) Urine Bilirubin (Negative) Urine Urobilinogen (Negative) Ur Leukocyte Esterase (Negative) Urine WBC (Auto) (0-5) /hpf Urine RBC (Auto) (0-4) /hpf U Hyaline Cast (Auto) (0-5) /lpf U Epithel Cells (Auto) (0-5) /lpf Urine Bacteria (Auto) (Negative) SARS-CoV-2 (PCR) NEGATIVE (Negative) Influenza Type A (PCR) Negative (Neg) Influenza Type B (PCR) Negative (Neg) RSV (RT-PCR) Negative (Neg) Administered Medications Sodium Chloride (Nss) 500 mls @ 125 mls/hr IV .Q4H [facility] Stop: 07/10/23 04:14 Last Admin: 06/10/23 05:06 Dose: 125 mls/hr Documented By: KAMALA Discontinued Medications Acetaminophen (Acetaminophen 500 Mg Tab) 1,000 mg PO NOW STA Stop: 06/10/23 04:12 Last Admin: 06/10/23 04:36 Dose: 1,000 mg Documented By: EARL Sodium Chloride (Nss 1000ml) 500 mls @ 999 mls/hr IV .Q31M LYUBOV Stop: 06/10/23 03:45 Last Infusion: 06/10/23 05:07 Dose: 0 mls/hr Documented By: Admin: 06/10/23 03:33 Dose: 999 mls/hr Documented By: KAMALA Sodium Chloride (Nss) 500 mls @ 999 mls/hr IV .Q31M ONE Stop: 06/10/23 04:41 Last Infusion: 06/10/23 05:07 Dose: 0 mls/hr Documented By: Admin: 06/10/23 04:37 Dose: 999 mls/hr Documented By: EARL Magnesium Sulfate/Dextrose (Magnesium Sulfate / D5w) 1 gm in 100 mls @ 100 mls/hr IV NOW STA Stop: 06/10/23 05:11 Last Admin: 06/10/23 04:36 Dose: 100 mls/hr Documented By: EARL Cefepime HCl (Maxipime) 2,000 mg in 20 mls @ 5 mls/min IV NOW STA; Protocol Stop: 06/10/23 04:14 Last Admin: 06/10/23 04:36 Dose: 5 mls/min Documented By: EARL Discharge Plan Visit Data Chief Complaint: Illness Stated Complaint: Shakiness ED Provider: Haritha Bustamante Discharge Problem: Pneumonia, Acute hyponatremia, Hypomagnesemia Forms Stand Alone Forms: [facility] [employer] Prescriptions Prescriptions: No Action simvastatin 20 mg tablet 20 mg PO QPM Qty: 90 3RF lisinopril-hydrochlorothiazide 20-25 mg tablet 1 tab PO QAM Qty: 90 3RF triamcinolone acetonide 0.1 % cream 1 applic topical BID Qty: 454 0RF Rx Instructions: Apply to areas of the trunk and extremities twice daily x 2 weeks as needed for flaring. pantoprazole [Protonix] 20 mg tablet,delayed release (DR/EC) 20 mg PO DAILY Qty: 30 11RF metoprolol succinate 25 mg tablet extended release 24 hr 12.5 mg PO DAILY Qty: 45 3RF potassium chloride 10 mEq tablet extended release 10 meq PO QPM Qty: 90 3RF nystatin 100,000 unit/gram cream 1 applic topical BID 14 Days Qty: 30 1RF levothyroxine 50 mcg tablet 50 mcg PO DAILYBB Rx Instructions: take 1 tablet by mouth once daily AT LEAST 30 MINUTES PRIOR TO BREAKFAST/OTHER MEDS Referrals Referrals: David Nevarez MD [Primary Care Provider] - Pneumonia Qualifiers: Pneumonia type: due to unspecified organism Laterality: left Lung location: lower lobe of lung Qualified Code(s): J18.9 - Pneumonia, unspecified organism
--- NOTE | 2023-06-10 06:24 | History & Physical Report ---
Date of Service June 10, 2023 Assessment & Plan (1) Pneumonia: Plan: 87yo male presenting with rigors. CXR suggestive of left sided PNA. Patient with minimal if any respiratory symptoms. He is afebrile, normal WBC count and normal procalcitonin. -Follow cultures -Ceftriaxone and Azithromycin -Consider CT chest for further evaluation (2) Hypothyroidism: Plan: Chronic. Stable. Last TSH 07/2022 normal at 2.888 -Continue Synthroid (3) Hypertension: Plan: -Hold antihypertensive agents for now, Lisinopril, Metoprolol and HCTZ -Monitor BP (4) Dyslipidemia: Plan: -Simvastatin 20mg po daily (5) Severe aortic stenosis: Plan: Cautious fluid balance. Blood pressure presently 90/64. Patient receiving IVF in ER -Monitor (6) GERD (gastroesophageal reflux disease): Plan: -Protonix 20mg po daily History of Present Illness Chief Complaint: rigors Primary Care Provider: David Nevarez MD Marcial Velez is a pleasant 87yo male with history of HTN, HLP, Severe and GERD presenting with rigors. Patient was in his usual state of health yesterday. He went to bed and woke up with shaking chills. He got an extra blanket and tried to go back to sleep but continued to shake so he called EMS. Otherwise he feels well. He denies cough, SOB, chest pain, palpitations, abdominal pain, nausea, vomiting, diarrhea or urinary complaints. Denies tick bites, sick contacts or recent travel. In the ER he was noted to be tachycardic, adequate oxygenation on room air ER Course: Cefepime Allergies Allergy/AdvReac Type Severity Reaction Status Date / Time No Known Drug Allergies Allergy NKDA Verified 05/23/23 08:24 Home Medications Medication Instructions Recorded Confirmed Type lisinopril 20 1 tab PO QAM #90 tabs 12/28/22 06/10/23 Rx mg-hydrochlorothiazide 25 mg tablet simvastatin 20 mg tablet 20 mg PO QPM #90 tabs 12/28/22 06/10/23 Rx triamcinolone acetonide 0.1 % 1 applic topical BID #454 grams 01/04/23 06/10/23 Rx topical cream pantoprazole 20 mg tablet,delayed 20 mg PO DAILY intestinal 01/14/23 06/10/23 Rx release (Protonix) metaplasia #30 tabs metoprolol succinate 25 mg 12.5 mg PO DAILY #45 tabs 02/09/23 06/10/23 Rx tablet,extended release 24 hr potassium chloride 10 mEq 10 meq PO QPM #90 tabs 03/28/23 06/10/23 Rx tablet,extended release nystatin 100,000 unit/gram topical 1 applic topical BID 2 weeks #30 04/13/23 06/10/23 Rx cream grams levothyroxine 50 mcg tablet 50 mcg PO DAILYBB 06/10/23 06/10/23 History Past Med/Surg History Medical History Carpal tunnel syndrome Diverticulitis hx Dysphagia GERD (gastroesophageal reflux disease) History of basal cell carcinoma History of squamous cell carcinoma HLD (hyperlipidemia) HTN (hypertension) Hypothyroidism Lyme disease, acute Osteoarthritis Pilonidal cyst resection Sensorineural hearing loss (SNHL) Severe aortic stenosis follows with Dr. 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 Beliefs That Will Affect Care: None marital status: / Current Living Situation: Family Current Living Situation Comment: lives with sister current occupational status: retired Feels Safe at Home: Yes Assistive Devices: Denture - Upper and Glasses Review of Systems Review of Systems: All systems reviewed & are unremarkable except as noted in HPI & below Physical Exam Physical Exam: General: patient resting comfortably, NAD, non-toxic in appearance, AA&O x 4 Skin: warm, dry, intact, no rashes or lesions HEENT: NC/AT, PERRL, EOMI, anicteric sclera, conjunctiva without injection, external ear normal to inspection and nontender, nares patent, moist mucus membranes, dentition intact, no oropharyngeal lesions, neck supple, trachea midline, no LAD, no thyromegaly, no JVD Heart: +S1/S2, regular, 3/6 JUSTO at right 2nd ICS with radiation across precordium Lungs: equal air entry bilaterally, diminished breath sounds in left base, crackles in right base Abd: +BS, soft, NT/ND, no masses/organomegaly/ascites Ext: warm, 2+ pulses in UE/LE bilaterally, no clubbing/cyanosis or edema Neuro: nonfocal, patient AA&O x 4, speech intact, no facial droop, moving all extremities on command with equal strength 5/5 Results & Data Results & Data Vital Signs (Past 12 Hours) Vital Signs Temp Pulse Resp BP Pulse Ox O2 Del Method 06/10/23 05:30 105 H 21 94 06/10/23 05:30 90/64 L 06/10/23 05:20 108 H 22 94 06/10/23 05:10 114 H 25 H 92 06/10/23 05:00 109 H 23 94 06/10/23 05:00 116/71 06/10/23 04:50 114 H 21 06/10/23 04:40 111 H 20 06/10/23 04:30 106 H 23 06/10/23 04:30 122/69 06/10/23 04:20 108 H 23 06/10/23 04:10 110 H 22 95 06/10/23 04:00 117 H 20 06/10/23 04:00 168/106 H 06/10/23 03:50 110 H 24 06/10/23 03:40 117 H 21 06/10/23 05:31 106 H 06/10/23 05:02 107 H 06/10/23 03:30 113 H 23 06/10/23 03:30 118/76 06/10/23 03:20 120 H 24 95 06/10/23 03:10 116 H 23 94 06/10/23 03:33 37.4 C 06/10/23 03:00 117 H 23 94 06/10/23 03:00 123/79 06/10/23 02:50 113 H 21 92 06/10/23 02:40 113 H 23 92 06/10/23 02:30 113 H 24 94 06/10/23 02:30 137/81 06/10/23 02:20 115 H 25 H 96 06/10/23 02:10 113 H 28 H 94 06/10/23 03:03 94 Room Air 06/10/23 02:00 115 H 28 H 94 06/10/23 02:00 141/86 H 06/10/23 01:50 115 H 27 H 94 06/10/23 01:42 175/105 H 06/10/23 01:42 119 H 28 H 06/10/23 01:40 120 H 20 06/10/23 01:30 121 H 23 85 L 06/10/23 01:30 178/105 H 06/10/23 01:20 114 H 24 95 06/10/23 01:10 116 H 24 95 06/10/23 01:02 123 H 24 93 06/10/23 01:01 171/106 H 06/10/23 01:01 125 H 06/10/23 00:51 37.1 C 124 H 18 171/106 H 95 Room Air Laboratory Results Laboratory Results WBC 9.88 K/ul (4.8-10.8) 06/10/23 03:20 RBC 3.97 M/uL (4.70-6.10) L 06/10/23 03:20 Hgb 12.6 g/dl (14.0-18.0) L 06/10/23 03:20 Hct 35.0 % (42.0-52.0) L 06/10/23 03:20 MCV 88.2 fL (80.0-100.0) 06/10/23 03:20 MCH 31.7 pg (25.0-34.0) 06/10/23 03:20 MCHC 36.0 g/dL (32.0-36.0) 06/10/23 03:20 RDW Std Deviation 41.3 fL (36.4-46.3) 06/10/23 03:20 RDW Coeff of [place] 12.6 % (11.5-14.5) 06/10/23 03:20 Plt Count 73 K/uL (130-400) L 06/10/23 03:20 MPV 11.6 fL (9.4-12.4) 06/10/23 03:20 Immature Gran % (Auto) 1.2 % 06/10/23 03:20 Neut % (Auto) 91.5 % 06/10/23 03:20 Lymph % (Auto) 4.0 % 06/10/23 03:20 [place] % (Auto) 2.3 % 06/10/23 03:20 Eos % (Auto) 0.4 % 06/10/23 03:20 Baso % (Auto) 0.6 % 06/10/23 03:20 Neut # (Auto) 9.03 K/uL (1.40-6.50) H 06/10/23 03:20 Lymph # (Auto) 0.40 K/uL (1.20-3.40) L 06/10/23 03:20 [place] # (Auto) 0.23 K/uL (0.11-0.59) 06/10/23 03:20 Eos # (Auto) 0.04 K/uL (0.00-0.50) 06/10/23 03:20 Baso # (Auto) 0.06 K/uL (0.00-0.20) 06/10/23 03:20 Immature Gran # (Auto) 0.12 K/uL (0.01-0.20) 06/10/23 03:20 Polychromasia 1+ 06/10/23 03:20 Echinocytes 1+ 06/10/23 03:20 Sodium 129 mmol/L (136-145) L 06/10/23 03:20 Potassium 3.8 mmol/L (3.5-5.1) 06/10/23 03:20 Chloride 98 mmol/L (98-107) 06/10/23 03:20 Carbon Dioxide 25 mmol/L (21-32) 06/10/23 03:20 Anion Gap 6 (3-11) 06/10/23 03:20 BUN 18 mg/dl (6-23) 06/10/23 03:20 Creatinine 0.86 mg/dl (0.6-1.4) 06/10/23 03:20 Est Cr Clr Drug Dosing 43.1 ml/min 06/10/23 03:20 Est GFR ( Amer) 89.1 ml/min 06/10/23 03:20 Est GFR (Non-Af Amer) 76.9 ml/min 06/10/23 03:20 BUN/Creatinine Ratio 20.9 (10-20) H 06/10/23 03:20 Glucose 116 mg/dl (70-99(Fasting)) H 06/10/23 03:20 POC Glucose 117 mg/dl (70-99) H 06/10/23 01:05 Lactate 0.9 mmol/L (0.4-2.0) 06/10/23 03:20 Calcium 8.6 mg/dl (8.6-10.3) 06/10/23 03:20 Magnesium 1.4 mg/dl (1.7-2.4) L 06/10/23 03:20 Total Bilirubin 1.1 mg/dl (0.2-1.0) H 06/10/23 03:20 Direct Bilirubin 0.2 mg/dl (0-0.2) 06/10/23 03:20 AST 16 U/L (13-39) 06/10/23 03:20 ALT 8 U/L (7-52) 06/10/23 03:20 Alkaline Phosphatase 55 U/L (34-104) 06/10/23 03:20 Troponin I High Sens 25.0 pg/ml (0-20) H 06/10/23 03:20 Total Protein 5.9 gm/dl (6.0-8.3) L 06/10/23 03:20 Albumin 4.0 gm/dl (3.4-5.0) 06/10/23 03:20 Procalcitonin 0.30 ng/ml (0-0.5) 06/10/23 03:20 Urine Color Yellow 06/10/23 01:45 Urine Appearance Clear (Clear) 06/10/23 01:45 Urine pH 7.5 (4.5-7.5) 06/10/23 01:45 Ur Specific [place] 1.010 (1.000-1.030) 06/10/23 01:45 Urine Protein Negative (Negative) 06/10/23 01:45 Urine Glucose (UA) Negative (Negative) 06/10/23 01:45 Urine Ketones Negative (Negative) 06/10/23 01:45 Urine Blood Trace (Negative) H 06/10/23 01:45 Urine Nitrite Negative (Negative) 06/10/23 01:45 Urine Bilirubin Negative (Negative) 06/10/23 01:45 Urine Urobilinogen Negative (Negative) 06/10/23 01:45 Ur Leukocyte Esterase Negative (Negative) 06/10/23 01:45 Urine WBC (Auto) 0 /hpf (0-5) 06/10/23 01:45 Urine RBC (Auto) 0-4 /hpf (0-4) 06/10/23 01:45 U Hyaline Cast (Auto) 0 /lpf (0-5) 06/10/23 01:45 U Epithel Cells (Auto) 0-5 /lpf (0-5) 06/10/23 01:45 Urine Bacteria (Auto) Negative (Negative) 06/10/23 01:45 SARS-CoV-2 (PCR) NEGATIVE (Negative) 06/10/23 04:45 Influenza Type A (PCR) Negative (Neg) 06/10/23 04:45 Influenza Type B (PCR) Negative (Neg) 06/10/23 04:45 RSV (RT-PCR) Negative (Neg) 06/10/23 04:45 Diagnostic Findings CXR by my interpretation with left sided PNA and possible effusion PG Care Time/CCT Total # of Minutes Spent Total Time Spent with Patient: Total time spent is greater than 50% in coordination of care (as documented) at patient's floor/unit and/or counseling patient: Coding Level of Care Code 40902 INT INP/OBS CARE 2MIN Diagnoses Pneumonia J18.9 Laterality: left Lung location: lower lobe of lung Pneumonia type: due to unspecified organism Hypothyroidism E03.9 Hypertension I10 Dyslipidemia E78.5 Severe aortic stenosis I35.0 GERD (gastroesophageal reflux disease) K21.9 (1) Pneumonia Laterality: left Lung location: lower lobe of lung Pneumonia type: due to unspecified organism Qualified Code(s): J18.9 - Pneumonia, unspecified organism
[2023-06-10] MEDS ORDERED: VANCOMYCIN CONSULT ACTIVE PRN (07:07)
[2023-06-10] MEDS ORDERED: VANCOMYCIN HCL 1,000 MG in SODIUM CHLORIDE 0.9% 250 ML IV STA (07:07)
--- NOTE | 2023-06-10 07:13 | XRay Report ---
XR chest 1V portable CLINICAL HISTORY: Sepsis. COMPARISON STUDY: Chest radiograph December 03, 2022. FINDINGS: A left supraclavicular round density remains unchanged. There is mild cardiomegaly with pul monary vascular congestion. Left basilar airspace opacity is present. No right lung airspace opacitie s are present. IMPRESSION: Left basilar opacity suggestive of pneumonia. Radiographic follow-up to ensure resolution is recommended. ACT 112: Negative or not required by law. Electronically signed by: Victor Manuel Woodward M.D. 06/10/2023 7:12 AM
[2023-06-10] MEDS ORDERED: STAT IV Infusion **Titration per Protocol STA (07:18)
[2023-06-10] MEDS ORDERED: NOREPINEPHRINE/D5W 4 MG/250 ML PLCT IV SCH (07:30)
[2023-06-10] MEDS ORDERED: VANCOMYCIN HCL 1,250 MG in SODIUM CHLORIDE 0.9% 250 ML IV STA (07:31)
[2023-06-10] MEDS ORDERED: ACETAMINOPHEN 325 MG TAB PO PRN (08:28)
[2023-06-10] MEDS ORDERED: MAGNESIUM SULFATE / D5W 1 GM/100 ML BAG IV SCH (08:28)
[2023-06-10] MEDS ORDERED: AZITHROMYCIN 500 MG in DEXTROSE 5% 250 ML IV STA (08:35)
--- NOTE | 2023-06-10 08:40 | Critical Care Consultation ---
Date of Consultation June 10, 2023 Assessment & Plan (1) Thrombocytopenia: (2) Shock circulatory: (3) Severe aortic stenosis: (4) GERD (gastroesophageal reflux disease): (5) Eosinophilic esophagitis: (6) Pneumonia: (7) Dyslipidemia: (8) Hyponatremia: Plan Reason Critically Ill: 87-year-old male past medical history of hypertension, severe AAS, dyslipidemia presented with left-sided pneumonia. Was found to be hypotensive and sent to the ICU for further management Neuro - [facility] ICU: Negative Cardiac - -- Septic shock Likely from left lower lobe pneumonia Continue with vasopressor support to keep MAP greater than 65 --Elevated troponins Likely type II OH Continue to trend BNP 336 EKG 06/10/2023: Sinus rhythm, multiple PVCs, left axis deviation with LVH, prolonged QT, no ST wave changes -- Severe 2D echo 10/27/2022: Moderate LVH, severe aortic stenosis, EF greater than 70%, grade 1 diastolic dysfunction, normal right-sided heart pressures --Prolonged QTc QTc 481 on 06/09/2023, avoid QT prolonging medication Respiratory - -- Left lower lobe pneumonia Continue with antibiotics Follow-up sputum culture GI - -- GERD Continue with PPI RENAL/LYTES - -- Chronic hyponatremia Continue to monitor Follow-up urine lites and osmolality - -- No acute issues ENDO - -- ICU hypoglycemia protocol HEME - -- Normocytic anemia Continue to monitor H&H --Chronic thrombocytopenia Continue to monitor ID - -- Left lower lobe pneumonia Antibiotics will be changed to doxycycline and Rocephin. Follow-up nasal MRSA --Prophylaxis VTE: Lovenox GI: Pantoprazole Lines: Peripheral Diet: Cardiac Plan: Strict in and out Azithromycin will be discontinued given prolonged QTc, will give doxycycline and Rocephin. Follow-up nasal MRSA. If it is negative then no need for vancomycin 2 g of magnesium for hypomagnesemia. Follow-up urine lites and serum and urine osmolality Sputum culture I have personally spent 55 minutes of critical care time in the direct management of this patient. This is a life/limb threatening event. This includes time spent evaluating patient, direct bedside care, chart review, placing orders, interpretation of diagnostic studies, discussion with consultants, patient, and family members, as well as other required patient management activities. This time is exclusive of all separately billable procedures, and teaching time and separate from and in addition to any other critical care service time. History of Present Illness Attending Physician: Phuong Cantu DO History of Present Illness 87-year-old male presented to the hospital with complaints of chills and rigors Past medical history: Hypertension, dyslipidemia, severe , GERD Patient was transferred to the ICU because he was found to be hypotensive At the time of examination patient was on 0.05 of Levophed with MAP 71 He was not in any respiratory distress. Saturation was 95-96% on room air Denies any chest pain, no headache, no nausea, no vomiting No abdominal pain. He says he is feeling better since coming to the hospital. Denies any cough. Not bringing up any phlegm. No diarrhea. Did complain of subjective fever and chills prior to coming. No recent sick contacts. Social history: Approximately 50-[id number] smoking history, quit approximately 50 years ago. No birds or poultry nearby Lung cancer: History of lung cancer in the father was a smoker Allergies Allergy/AdvReac Type Severity Reaction Status Date / Time No Known Drug Allergies Allergy NKDA Verified 05/23/23 08:24 Home Medications Medication Instructions Recorded Confirmed Type lisinopril 20 1 tab PO QAM #90 tabs 12/28/22 06/10/23 Rx mg-hydrochlorothiazide 25 mg tablet simvastatin 20 mg tablet 20 mg PO QPM #90 tabs 12/28/22 06/10/23 Rx triamcinolone acetonide 0.1 % 1 applic topical BID #454 grams 01/04/23 06/10/23 Rx topical cream pantoprazole 20 mg tablet,delayed 20 mg PO DAILY intestinal 01/14/23 06/10/23 Rx release (Protonix) metaplasia #30 tabs metoprolol succinate 25 mg 12.5 mg PO DAILY #45 tabs 02/09/23 06/10/23 Rx tablet,extended release 24 hr potassium chloride 10 mEq 10 meq PO QPM #90 tabs 03/28/23 06/10/23 Rx tablet,extended release nystatin 100,000 unit/gram topical 1 applic topical BID 2 weeks #30 04/13/23 06/10/23 Rx cream grams levothyroxine 50 mcg tablet 50 mcg PO DAILYBB 06/10/23 06/10/23 History Patient History Medical History (Updated 06/10/23 @ 11:43 by Yehuda Mesa MD, [facility]) Carpal tunnel syndrome Diverticulitis hx Dysphagia GERD (gastroesophageal reflux disease) History of basal cell carcinoma History of squamous cell carcinoma HLD (hyperlipidemia) HTN (hypertension) Hyponatremia Hypothyroidism Lyme disease, acute Osteoarthritis Pilonidal cyst resection Sensorineural hearing loss (SNHL) Severe aortic stenosis follows with Dr. 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 Beliefs That Will Affect Care: None marital status: / Current Living Situation: Family Current Living Situation Comment: Lives with sister current occupational status: retired Feels Safe at Home: Yes Assistive Devices: Denture - Upper and Glasses Review of Systems Review of Systems: All systems reviewed & are unremarkable except as noted in HPI & below Physical Exam Physical Exam: Constitutional: No acute distress HEENT: EOMI, PERRLA Respiratory system: Decreased air entry bilaterally, more decreased on the left side, no wheeze, no rhonchi, positive crackles bilaterally more on the left side CVS: S1-S2 positive, positive 3 out of 6 systolic murmur appreciated best at the aorta Abdomen: Soft, nontender, nondistended, positive bowel sounds x4 Extremities: +2 pulses bilaterally radialis/ dorsalis pedis, no cyanosis, no edema, osteoarthritic changes appreciated in the fingers bilaterally Neuro: Awake alert oriented x3 Psych: Normal mood and affect G/U: No [place] Skin: no rashes, warm and dry Lymphatic: no cervical or axillary lymphadenopathy Results & Data Results & Data Vital Signs (Past 12 Hours) Vital Signs Temp Pulse Resp BP Pulse Ox O2 Del Method 06/10/23 07:00 37.1 C 06/10/23 07:31 90/47 L 06/10/23 07:31 86 20 06/10/23 07:30 89 29 H 94 06/10/23 07:30 87/54 L 06/10/23 07:15 87 16 97 06/10/23 07:15 88/54 L 06/10/23 07:06 90 20 95 06/10/23 07:06 84/39 L 06/10/23 07:00 93 H 21 96 06/10/23 07:00 82/37 L 06/10/23 06:54 79/35 L 06/10/23 06:54 89 19 97 06/10/23 06:50 91 H 21 97 06/10/23 06:50 83/49 L 06/10/23 06:47 70/47 L 06/10/23 06:47 90 24 96 06/10/23 06:45 88 20 97 06/10/23 06:45 82/47 L 06/10/23 06:42 92 H 30 H 95 06/10/23 06:42 80/41 L 06/10/23 06:40 93 H 16 96 06/10/23 06:39 95 H 25 H 96 06/10/23 06:39 78/52 L 06/10/23 06:38 93 H 16 96 06/10/23 06:38 78/39 L 06/10/23 06:30 91 H 23 95 06/10/23 06:30 89/50 L 06/10/23 06:20 102 H 23 93 06/10/23 06:10 99 H 20 96 06/10/23 06:00 102 H 21 97 06/10/23 06:00 95/57 L 06/10/23 05:50 98 H 19 95 06/10/23 05:40 101 H 20 95 06/10/23 05:30 105 H 21 94 06/10/23 05:30 90/64 L 06/10/23 05:20 108 H 22 94 06/10/23 05:10 114 H 25 H 92 06/10/23 05:00 109 H 23 94 06/10/23 05:00 116/71 06/10/23 04:50 114 H 21 06/10/23 04:40 111 H 20 06/10/23 04:30 106 H 23 06/10/23 04:30 122/69 06/10/23 04:20 108 H 23 06/10/23 04:10 110 H 22 95 06/10/23 04:00 117 H 20 06/10/23 04:00 168/106 H 06/10/23 03:50 110 H 24 06/10/23 03:40 117 H 21 06/10/23 05:31 106 H 06/10/23 05:02 107 H 06/10/23 03:30 113 H 23 06/10/23 03:30 118/76 06/10/23 03:20 120 H 24 95 06/10/23 03:10 116 H 23 94 06/10/23 03:33 37.4 C 06/10/23 03:00 117 H 23 94 06/10/23 03:00 123/79 06/10/23 02:50 113 H 21 92 06/10/23 02:40 113 H 23 92 06/10/23 02:30 113 H 24 94 06/10/23 02:30 137/81 06/10/23 02:20 115 H 25 H 96 06/10/23 02:10 113 H 28 H 94 06/10/23 03:03 94 Room Air 06/10/23 02:00 115 H 28 H 94 06/10/23 02:00 141/86 H 06/10/23 01:50 115 H 27 H 94 06/10/23 01:42 175/105 H 06/10/23 01:42 119 H 28 H 06/10/23 01:40 120 H 20 06/10/23 01:30 121 H 23 85 L 06/10/23 01:30 178/105 H 06/10/23 01:20 114 H 24 95 06/10/23 01:10 116 H 24 95 06/10/23 01:02 123 H 24 93 06/10/23 01:01 171/106 H 06/10/23 01:01 125 H 06/10/23 00:51 37.1 C 124 H 18 171/106 H 95 Room Air Laboratory Results 06/10/23 03:20 06/10/23 03:20 Coding Level of Care Code 93922 CRITICAL CARE 1ST 30-74M Diagnoses Thrombocytopenia D69.6 Shock circulatory R57.9 Severe aortic stenosis I35.0 GERD (gastroesophageal reflux disease) K21.9 Eosinophilic esophagitis K20.0 Pneumonia J18.9 Laterality: left Lung location: lower lobe of lung Pneumonia type: due to unspecified organism Dyslipidemia E78.5 Hyponatremia E87.1 Time Spent (min) 55 (6) Pneumonia Laterality: left Lung location: lower lobe of lung Pneumonia type: due to unspecified organism Qualified Code(s): J18.9 - Pneumonia, unspecified organism
[2023-06-10] MEDS: NYSTATIN CR 15 GM TUBE EXT SCH ×2 (08:58→21:18)
[2023-06-10] MEDS: PANTOprazole 40 MG TAB PO SCH (08:58)
[2023-06-10] MEDS: ICU Protocol for HYPERglycemia SCH ×4 (08:58→21:25)
[2023-06-10] MEDS: LEVOTHYROXINE SODIUM 50 MCG TABLET PO SCH (08:58)
[2023-06-10] MEDS ORDERED: POTASSIUM CHLORIDE 10 MEQ TABCR PO ONE (10:15)
[2023-06-10] MEDS ORDERED: POTASSIUM CHLORIDE PWD 20 MEQ PACK PO SCH (10:30)
[2023-06-10] MEDS: ENOXAPARIN INJ 40 MG/0.4 ML SYR SQ SCH (13:56)
[2023-06-10] MEDS: cefTRIAXone SODIUM 1,000 MG in DEXTROSE 5% AD-VAN 50 ML IV SCH (13:57)
[2023-06-10 15:36] LABS: Potassium Random Urine 50.1 mmol/L
[2023-06-10 15:44] LABS: Creatinine Urine Random 64.6 mg/dl
--- NOTE | 2023-06-10 16:16 | Electrocardiogram Report ---
Test Reason : Blood Pressure : / mmHG Vent. Rate : 122 BPM Atrial Rate : 122 BPM P-R Int : 158 ms QRS Dur : 070 ms QT Int : 280 ms P-R-T Axes : 064 -14 077 degrees QTc Int : 399 ms Sinus tachycardia Minimal voltage criteria for LVH, may be normal variant ( R in aVL ) Nonspecific ST and T wave abnormality Abnormal ECG When compared with ECG of 03-DEC-2022 09:54, Premature ventricular complexes are no longer Present Vent. rate has increased BY 63 BPM Confirmed by Guillermo Espino ([id number]) on 06/10/2023 4:16:22 PM Referred By: REFERRED SELF Confirmed By:Guillermo Espino
--- NOTE | 2023-06-10 16:33 | Electrocardiogram Report ---
Test Reason : Blood Pressure : / mmHG Vent. Rate : 089 BPM Atrial Rate : 088 BPM P-R Int : 154 ms QRS Dur : 074 ms QT Int : 360 ms P-R-T Axes : 030 -11 -03 degrees QTc Int : 438 ms Sinus rhythm with frequent Premature ventricular complexes in a pattern of bigeminy Left ventricular hypertrophy with repolarization abnormality ( R in aVL , Romhilt-Sims ) Abnormal ECG When compared with ECG of 10-JUN-2023 01:06, (unconfirmed) Premature ventricular complexes are now Present T wave inversion now evident in Inferior leads T wave inversion no longer evident in Lateral leads Confirmed by Guillermo Espino ([id number]) on 06/10/2023 4:32:56 PM Referred By: REFERRED SELF Confirmed By:Guillermo Espino
[2023-06-10] MEDS: SIMVASTATIN 20 MG TAB PO SCH (21:18)
[2023-06-11] MEDS: LEVOTHYROXINE SODIUM 50 MCG TABLET PO SCH (06:06)
[2023-06-11 07:08] LABS: Basophils # (auto) 0.04 K/uL (0.00-0.20); Basophils % (auto) 0.4 %; Eosinophils # (auto) 0.29 K/uL (0.00-0.50); Hematocrit (blood only) 30.4 % (42.0-52.0); Hemoglobin 10.8 g/dl (14.0-18.0); Immature Granulocytes # (auto) 0.12 K/uL (0.01-0.20); Immature Granulocytes % (auto) 1.2 %; Lymphocytes % (auto) 11.4 %; Mean Corpuscular Hemoglobin 31.9 pg (25.0-34.0); Mean Corpuscular Hgb Conc 35.5 g/dL (32.0-36.0); Mean Corpuscular Volume 89.7 fL (80.0-100.0); Mean Platelet Volume 11.8 fL (9.4-12.4); Monocytes # (auto) 0.36 K/uL (0.11-0.59); Monocytes % (auto) 3.7 %; Neutrophils # (auto) 7.77 K/uL (1.40-6.50); Neutrophils % (auto) 80.3 %; Platelet Count 60 K/uL (130-400); RDW Coefficient of Variation 12.9 % (11.5-14.5); RDW Standard Deviation 42.1 fL (36.4-46.3); Red Blood Count 3.39 M/uL (4.70-6.10); White Blood Count 9.68 K/ul (4.8-10.8)
[2023-06-11 07:40] LABS: BUN Creatinine Ratio 18.9 (10-20); Calcium 8.1 mg/dl (8.6-10.3); Creatinine Clr Calc Pharmacy 50.1 ml/min; Est GFR (African American) 94.8 ml/min; Est GFR (Non-African American) 81.8 ml/min
--- NOTE | 2023-06-11 07:51 | XRay Report ---
XR chest 1V portable CLINICAL HISTORY: f/u COMPARISON STUDY: Chest radiograph June 10, 2023. FINDINGS: Mild elevation of the left hemidiaphragm. There is no pneumothorax. No definite pleural eff usion. Left lower lung airspace opacity is noted. Extent has slightly decreased. Right lung is clear. Cardiomegaly is noted. No evidence for pulmonary edema. IMPRESSION: Left basilar opacity suggestive of pneumonia, slightly decreased in extent since prior e xam. Continued radiographic follow-up to ensure resolution is recommended. ACT 112: Negative or not required by law. Electronically signed by: Victor Manuel Woodward M.D. 06/11/2023 7:49 AM
--- NOTE | 2023-06-11 07:54 | Hospitalist Progress Note ---
Date of Service June 11, 2023 Assessment & Plan (1) Pneumonia: Plan: -Presented with rigors, with CXR suggestive of left sided PNA -Patient with minimal if any respiratory symptoms, however with septic shock on presentation -BCx 06/10 at 3:45am with NGTD -Cont doxy/Rocephin, anticipate transition to oral Abx on discharge if BCx negative -No signs of overt aspiration however is at risk of such due to Hx esophageal issues/dilation, aspiration and reflux precautions in place (2) Hypothyroidism: Plan: -Chronic, with last TSH 07/2022 normal at 2.888 -Continue Synthroid (3) Hypertension: Plan: -Hold antihypertensive agents for now (lisinopril, metoprolol and HCTZ) -Monitor BP, resume metoprolol and lisinopril only for now, will decide on HCTZ based on fluid status and BP tomorrow after medications given (4) Dyslipidemia: Plan: -Simvastatin 20mg PO daily (5) Severe aortic stenosis: Plan: -Very preload dependent, cautious fluid management (6) GERD (gastroesophageal reflux disease): Plan: -Protonix 40mg PO daily (7) Demand ischemia: Plan: -Patient with elevated troponin on admission suspect demand ischemia 2/2 septic shock from PNA, no chest pain or diaphoresis, will repeat EKG -Troponin peaked at 500 and is downtrending -Continue beta caryn, statin, BP control Plan Continue care of PNA, PT and OT evaluations placed to aid in dispo planning, anticipate home tomorrow on oral Abx if symptoms continue to improve, BCx negative, and patient able to ambulate and perform ADLs without difficulty Admission and Anticipated Discharge Date Admission Date: June 10, 2023 Subjective No acute events overnight, feeling fairly well and overall much better than admission. Denies SOB, chest pain, abdominal pain, nausea, cough. Physical Exam Constitutional: WD/WN, vitals as above Respiratory: decreased breath sounds left lower lung, otherwise CTA bilaterally Cardiovascular: RRR, 3/6 systolic murmur Gastrointestinal (Abdomen): normal bowel sounds, soft, nontender, no hepatosplenomegaly Skin: no rashes, warm and dry Psychiatric: A+Ox3, euthymic affect Results & Data Results & Data Vital Signs (Past 12 Hours) Vital Signs Temp Pulse Pulse Resp BP BP Pulse Ox 06/11/23 02:58 06/11/23 02:55 36.6 C 74 16 127/74 98 06/10/23 23:31 69 06/10/23 22:11 36.8 C 77 16 133/62 95 06/10/23 21:30 63 19 96 06/10/23 21:30 128/58 L 06/10/23 21:00 67 16 96 06/10/23 21:00 118/52 L 06/10/23 20:36 77 17 98 06/10/23 20:01 133/59 L 06/10/23 20:01 68 18 95 06/10/23 20:00 65 18 98 06/10/23 21:40 O2 Del Method 06/11/23 02:58 Room Air 06/11/23 02:55 Room Air 06/10/23 23:31 06/10/23 22:11 Room Air 06/10/23 21:30 Room Air 06/10/23 21:30 06/10/23 21:00 Room Air 06/10/23 21:00 06/10/23 20:36 Room Air 06/10/23 20:01 06/10/23 20:01 06/10/23 20:00 Room Air 06/10/23 21:40 Room Air PG Care Time/CCT Total # of Minutes Spent Total Time Spent with Patient: Total time spent is greater than 50% in coordination of care (as documented) at patient's floor/unit and/or counseling patient: Coding Level of Care Code 55796 SUB INP/OBS CARE 3/50MIN Diagnoses Pneumonia J18.9 Laterality: left Lung location: lower lobe of lung Pneumonia type: due to unspecified organism Hypothyroidism E03.9 Hypertension I10 Dyslipidemia E78.5 Severe aortic stenosis I35.0 GERD (gastroesophageal reflux disease) K21.9 Demand ischemia I24.8 (1) Pneumonia Laterality: left Lung location: lower lobe of lung Pneumonia type: due to unspecified organism Qualified Code(s): J18.9 - Pneumonia, unspecified organism
[2023-06-11] MEDS ORDERED: AZITHROMYCIN 250 MG in DEXTROSE 5% 250 ML IV SCH (09:00)
[2023-06-11] MEDS: ENOXAPARIN INJ 40 MG/0.4 ML SYR SQ SCH (09:04)
[2023-06-11] MEDS: PANTOprazole 40 MG TAB PO SCH (09:04)
[2023-06-11] MEDS: NYSTATIN CR 15 GM TUBE EXT SCH ×2 (09:04→21:00)
[2023-06-11] MEDS: DOXYCYCLINE HYCLATE 100 MG in DEXTROSE 5% 100 ML IV SCH ×2 (09:06→21:07)
[2023-06-11] MEDS: cefTRIAXone SODIUM 1,000 MG in DEXTROSE 5% AD-VAN 50 ML IV SCH (11:19)
[2023-06-11] MEDS: SIMVASTATIN 20 MG TAB PO SCH (21:00)
[2023-06-12] MEDS: LEVOTHYROXINE SODIUM 50 MCG TABLET PO SCH (06:10)
[2023-06-12 08:02] LABS: Hematocrit (blood only) 34.5 % (42.0-52.0); Hemoglobin 12.2 g/dl (14.0-18.0); Mean Corpuscular Hemoglobin 31.5 pg (25.0-34.0); Mean Corpuscular Hgb Conc 35.4 g/dL (32.0-36.0); Mean Corpuscular Volume 89.1 fL (80.0-100.0); Platelet Count 73 K/uL (130-400); RDW Coefficient of Variation 12.9 % (11.5-14.5); RDW Standard Deviation 41.9 fL (36.4-46.3); Red Blood Count 3.87 M/uL (4.70-6.10); White Blood Count 6.27 K/ul (4.8-10.8)
[2023-06-12] MEDS: ENOXAPARIN INJ 40 MG/0.4 ML SYR SQ SCH (08:39)
[2023-06-12] MEDS: PANTOprazole 40 MG TAB PO SCH (08:41)
[2023-06-12] MEDS: NYSTATIN CR 15 GM TUBE EXT SCH (08:43)
[2023-06-12] MEDS: DOXYCYCLINE HYCLATE 100 MG in DEXTROSE 5% 100 ML IV SCH (08:45)
[2023-06-12] MEDS ORDERED: METOPROLOL SUCC 25MG EXT REL TAB PO SCH (09:00)
[2023-06-12] MEDS ORDERED: lisinopril 20 MG TAB PO SCH (09:00)
[2023-06-12] MEDS: cefTRIAXone SODIUM 1,000 MG in DEXTROSE 5% AD-VAN 50 ML IV SCH (12:26)
--- NOTE | 2023-06-12 13:30 | Discharge Summary ---
Discharge Summary Date of Service June 12, 2023 Admission HPI Per Admitting Provider Marcial Velez is a pleasant 87yo male with history of HTN, HLP, Severe and GERD presenting with rigors. Patient was in his usual state of health yesterday. He went to bed and woke up with shaking chills. He got an extra blanket and tried to go back to sleep but continued to shake so he called EMS. Otherwise he feels well. He denies cough, SOB, chest pain, palpitations, abdominal pain, nausea, vomiting, diarrhea or urinary complaints. Denies tick bites, sick contacts or recent travel. In the ER he was noted to be tachycardic, adequate oxygenation on room air ER Course: Cefepime Admission Exam Per Admitting Provider General: patient resting comfortably, NAD, non-toxic in appearance, AA&O x 4 Skin: warm, dry, intact, no rashes or lesions HEENT: NC/AT, PERRL, EOMI, anicteric sclera, conjunctiva without injection, external ear normal to inspection and nontender, nares patent, moist mucus membranes, dentition intact, no oropharyngeal lesions, neck supple, trachea midline, no LAD, no thyromegaly, no JVD Heart: +S1/S2, regular, 3/6 JUSTO at right 2nd ICS with radiation across precordium Lungs: equal air entry bilaterally, diminished breath sounds in left base, crackles in right base Abd: +BS, soft, NT/ND, no masses/organomegaly/ascites Ext: warm, 2+ pulses in UE/LE bilaterally, no clubbing/cyanosis or edema Neuro: nonfocal, patient AA&O x 4, speech intact, no facial droop, moving all extremities on command with equal strength 5/5 Principal Dx & Hospital Course #1 = Principal Diagnosis (1) Pneumonia: -Presented with rigors, with CXR suggestive of left sided PNA -Patient with minimal if any respiratory symptoms, however with septic shock on presentation, since resolved -BCx 06/10 at 3:45am with NGTD -Doxy/Rocephin transitioned to Levaquin on discharge to complete course, EKG 06/11 with normal QTc -No signs of overt aspiration however is at risk of such due to Hx esophageal issues/dilation, aspiration and reflux precautions recommended (2) Hypothyroidism: -Chronic, with last TSH 07/2022 normal at 2.888 -Continue Synthroid (3) Hypertension: -On discharge only resumed metoprolol and lisinopril, did discontinue HCTZ for now given septic shock in the recent past and volume depletion -Can resume HCTZ or consider alternative for BP control in outpatient setting, per PCP discretion, after patient recovers from acute infection (4) Dyslipidemia: -Simvastatin 20mg PO daily (5) Severe aortic stenosis: -Very preload dependent, cautious fluid management -Fortunately minimal HARDY, has declined TAVR in the past (6) GERD (gastroesophageal reflux disease): -Protonix 40mg PO daily (7) Demand ischemia: -Patient with elevated troponin on admission suspect demand ischemia 2/2 septic shock from PNA, no chest pain or diaphoresis, repeat EKG after resolution of shock with improvement in T wave abnormalities seen on admit -Troponin peaked at 500 and downtrended -Continue beta caryn, statin, BP control Plan Patient did very well with ambulation, no care needs on discharge, given return precautions and advised to take it easy over the next few days, follow up with PCP in next 1-2 weeks. Discharge Exam Constitutional WD/WN, vitals as above Respiratory normal respiratory effort, lungs clear to auscultation Cardiovascular regular rate and rhythm, systolic murmur Skin no rashes, warm and dry Psychiatric A+Ox3, euthymic affect Updated Medication List Medication Instructions Recorded Confirmed Type simvastatin 20 mg tablet 20 mg PO QPM #90 tabs 12/28/22 06/10/23 Rx triamcinolone acetonide 0.1 % 1 applic topical BID #454 grams 01/04/23 06/10/23 Rx topical cream pantoprazole 20 mg tablet,delayed 20 mg PO DAILY intestinal 01/14/23 06/10/23 Rx release (Protonix) metaplasia #30 tabs metoprolol succinate 25 mg 12.5 mg PO DAILY #45 tabs 02/09/23 06/10/23 Rx tablet,extended release 24 hr potassium chloride 10 mEq 10 meq PO QPM #90 tabs 03/28/23 06/10/23 Rx tablet,extended release nystatin 100,000 unit/gram topical 1 applic topical BID 2 weeks #30 04/13/23 06/10/23 Rx cream grams levothyroxine 50 mcg tablet 50 mcg PO DAILYBB 06/10/23 06/10/23 History levofloxacin 750 mg tablet 750 mg PO DAILY 5 days #5 tabs 06/12/23 Rx lisinopril 20 mg tablet 20 mg PO QAM 30 days #30 tabs 06/12/23 Rx Hospital Stay Data Consultations 06/10/23 04:59 ED Decision to Admit Stat 06/10/23 08:28 Consult Event Mgr Routine Pending Results Patient Have Any Pending Studies at Discharge: No Discharge Instructions Given to Patient (Per Discharging Provider) You were admitted to the hospital and found to have sepsis due to a pneumonia. For a short time, you needed medications to help keep your blood pressure up, but these have since been stopped. You will go home on pill antibiotics, called levofloxacin. You should start this tomorrow morning and take with food and water. You can return to your home medications, EXCEPT we stopped your lisinopril/hydrochlorothiazide combined pill. Instead, we want you to continue only the lisinopril part. This was sent to your pharmacy. You should follow up your blood pressure with Dr. Nevarez's office. Total Time Total Time Spent Total Time Spent (In Minutes): 35 min Coding Level of Care Code 37218 INP/OBS DISCH >30 MIN Diagnoses Pneumonia J18.9 Laterality: left Lung location: lower lobe of lung Pneumonia type: due to unspecified organism Hypothyroidism E03.9 Hypertension I10 Dyslipidemia E78.5 Severe aortic stenosis I35.0 GERD (gastroesophageal reflux disease) K21.9 Demand ischemia I24.8
--- NOTE | 2023-06-12 20:46 | Electrocardiogram Report ---
Test Reason : Blood Pressure : / mmHG Vent. Rate : 081 BPM Atrial Rate : 081 BPM P-R Int : 154 ms QRS Dur : 076 ms QT Int : 360 ms P-R-T Axes : 051 -06 043 degrees QTc Int : 418 ms Sinus rhythm with Premature atrial complexes Possible Left atrial enlargement Left ventricular hypertrophy Abnormal ECG When compared with ECG of 10-JUN-2023 06:44, Premature ventricular complexes are no longer Present Premature atrial complexes are now Present T wave amplitude has increased in Anterolateral leads QT has shortened Confirmed by Trace Ross ([id number]) on 06/12/2023 8:45:34 PM Referred By: REFERRED SELF Confirmed By:Trace Ross
[2023-06-15 15:12] LABS: Uric Acid, Random Urine 24 mg/dL
== END 2023-06-12 13:40 | disposition home or self-care (01) | DRG 871 ==
LOC: ED 00:57 → SUATTDRO 05:16 → 1E 05:16 → 2S 22:10